=== PATIENT | female | born 1955 | race Caucasian/White ===

== ENCOUNTER 2018-02-24 08:41 | Observation (INO) | payer MEDICAID ==
[~2018-02-24] VITALS: Ht 167.6 cm; Wt 78.2 kg
[2018-02-24 09:06] LABS: BASOPHILS 0.2 % (0-2); EOSINOPHILS 0 % (0-7); HEMATOCRIT 43.6 % (36.0-48.0); HEMOGLOBIN 14.8 g/dL (12-16); IMMATURE GRANULOCYTES 0.2 % (0-5); LYMPHOCYTES 17.6 % (15-50); MCH 32.4 pg (26.0-34.0); MCHC 33.9 g/dL (31.0-37.0); MCV 95.4 fL (80.0-100.0); MEAN PLATELET VOLUME 11.2 fL (7.4-10.4); MONOCYTES 3.2 % (2-11); NEUTROPHILS 78.8 % (40-80); PLATELET COUNT 151 10x3/uL (130-400); RBC 4.57 10x6/uL (4.00-5.40); RDW 14.4 % (11.5-14.5); WBC 9.6 10x3/uL (4.8-10.8)
[2018-02-24 09:22] LABS: APPEARANCE CLEAR (CLEAR); COLOR YELLOW (YELLOW)
[2018-02-24 09:23] LABS: BILIRUBIN NEGATIVE (NEGATIVE); GLUCOSE 250 mg/dL (NEGATIVE); KETONE NEGATIVE (NEGATIVE); NITRITE NEGATIVE (NEGATIVE); PROTEIN NEGATIVE (NEGATIVE); UROBILINOGEN NORMAL (NORMAL)
[2018-02-24 09:29] LABS: ALBUMIN 3.7 g/dL (3.4-5.0); ALKALINE PHOSPHATASE 109 U/L (46-116); ALT (SGPT) 19 U/L (10-68); BILIRUBIN - TOTAL 0.84 mg/dL (0.2-1.3); CALCIUM 9.6 mg/dL (8.5-10.1); CARBON DIOXIDE 23.8 mmol/L (21.0-32.0); CHLORIDE - SERUM 98 mmol/L (98-107); CKMB 0.2 U/L (0.0-3.6); CREATINE KINASE 45 UL (21-215); PROTEIN - SERUM 7.6 g/dL (6.4-8.2); SODIUM 135 mmol/L (136-145); UREA NITROGEN 15 mg/dL (7-18); eGFR NON AFRICAN AMERICAN 59 mL/min (90-120)
[2018-02-24 09:34] LABS: CALC OSMOLALITY 291 mosm/kg (275-300); GLUCOSE 482 mg/dL (74-106); TROPONIN-I < 0.017 ng/mL (0.000-0.060)
[2018-02-24 10:00] LABS: ACETAMINOPHEN 32.4 ug/mL (10.0-30.0)
[2018-02-24 10:05] LABS: UDS - AMPHET NEGATIVE QUAL (NEGATIVE); UDS - BARB NEGATIVE QUAL (NEGATIVE); UDS - BENZO NEGATIVE QUAL (NEGATIVE); UDS - COCAINE NEGATIVE QUAL (NEGATIVE); UDS - OPIATE NEGATIVE QUAL (NEGATIVE); UDS - PCP NEGATIVE QUAL (NEGATIVE); UDS - THC NEGATIVE QUAL (NEGATIVE)
[2018-02-24 15:08] LABS: CKMB 0.5 U/L (0.0-3.6); CREATINE KINASE 47 UL (21-215); TROPONIN-I < 0.017 ng/mL (0.000-0.060)
[2018-02-24 16:43] VITALS: BP 150/59
[2018-02-24 16:51] VITALS: BMI 27.8
[2018-02-24] MEDS ORDERED: TYLENOL PM1 TAB (18:16)
[2018-02-24] MEDS ORDERED: NEURONTIN600 MG PO (18:17)
[2018-02-24] MEDS ORDERED: COREG 3.1253.125 MG PO (18:17)
[2018-02-24] MEDS ORDERED: LIPITOR80 MG PO (18:17)
[2018-02-24] MEDS ORDERED: ZESTORETIC 20/21 TAB PO (18:18)
[2018-02-24] MEDS ORDERED: LYRICA50 MG PO (18:18)
[2018-02-24] MEDS ORDERED: ROBAXIN-750750 MG PO (18:19)
[2018-02-24] MEDS ORDERED: PLAVIX75 MG PO (18:20)
[2018-02-24] MEDS ORDERED: PROTONIX40 MG PO (18:21)
[2018-02-24] MEDS ORDERED: ZOLOFT100 MG PO (18:22)
[2018-02-24] MEDS ORDERED: REGLAN10 MG PO (18:22)
[2018-02-24] MEDS ORDERED: PROVENTIL/2.5 MG/3 M INH (18:23)
[2018-02-24 20:07] LABS: CKMB 0.4 U/L (0.0-3.6); CREATINE KINASE 57 UL (21-215)
[2018-02-24 20:08] LABS: TROPONIN-I < 0.017 ng/mL (0.000-0.060)
[2018-02-24 23:04] VITALS: BP 155/89
[2018-02-25 02:50] LABS: CREATINE KINASE 81 UL (21-215)
[2018-02-25 02:51] LABS: TROPONIN-I < 0.017 ng/mL (0.000-0.060)
[2018-02-25 04:33] VITALS: BP 134/44
[2018-02-25 08:42] VITALS: BP 126/76
[2018-02-25 12:45] VITALS: BP 147/77
[2018-02-25 14:40] VITALS: Ht 167.6 cm; Wt 78.2 kg
[2018-02-25] MEDS ORDERED: CYMBALTA30 MG PO (14:40)
== END 2018-02-25 15:36 | disposition home or self-care (01) ==
LOC: D.ER 08:41 → D.EDHOLD 14:09 → D.MS 14:33 → OBSVTIME 17:00 → D.MS 02-25 15:36
PROVIDERS: Family Medicine
DX: T42.6X1A Poisoning by other antiepileptic and sedative-hypnotic drugs, accidental (unintentional), initial encounter (principal); R41.82 Altered mental status, unspecified; E11.42 Type 2 diabetes mellitus with diabetic polyneuropathy; F17.200 Nicotine dependence, unspecified, uncomplicated; E11.65 Type 2 diabetes mellitus with hyperglycemia

== ENCOUNTER 2018-11-02 15:45 | Inpatient (IN) | payer MEDICARE ==
[~2018-11-02] VITALS: Ht 167.6 cm; Wt 71.1 kg
--- NOTE | ~2018-11-02 | HEMODYNAMI ---
PATIENT:CELI SHIPMAN MEDICAL RECORD: [id number] : 51 LOCATION:D D.2230 ADMISSION DATE: 11/03/18 Generatedon:11/06/201811:55 Patient name: CELI SHIPMAN Patient #: [id number] SSN: D OB: 1955 Date of study: 11/06/2018 Page: Of Hemodynamic Procedure Report Patient Data Patient Demographics Procedure consent was obtained First Name: CELI Gender: Female Last Name: UMBERTO : 1955 Patient #: [id number] Age: 63 year(s) Race: Unknown Additional ID: [id number] Contact details Address: [address] State: [place] City: [place] Zip code: [address] Admission Admission Data Admission Date: 11/03/2018 Admission Time: 13:39 Arrival Date: 11/06/2018 Arrival Time: 13:39 Admit Source: Other Insurance Payor: Medicare Room #: D.2230 Height (in.): 65.75 BSA: 1.86 (m2) Height (cm.): 167 BMI: 27.61 (kg/m2) Weight (lbs.): 169.76 Weight (kg.): 77 Lab Results Lab Result Date: 11/06/2018 Lab Result Time: 0:00 Biochemistry Name Units Result Min Max BUN mg/dl 17 --(---*)-- 7 18 Creatinine mg/dl 0.6 --(*---)-- 0.6 1.3 CBC Name Units Result Min Max Hemoglobin g/dl 13 -*(----)-- 13.5 17.5 Procedure Procedure Types Cath Procedure Diagnostic Procedure LHC LHC w/Coronaries Sedation Charges Moderate Sedation up to 15 minutes PCI Procedure Coronary Stent Coronary Stent Initial x2 Peripheral Cath Diagnostic Procedure Spice Mixer Peripheral Procedures Four Vessel Arteriogram Procedure Description Procedure Date Procedure Date: 11/06/2018 Procedure Start Time: 11:27 Procedure End Time: 11:54 Procedure Staff Name Function Luis A Gray MD Performing Physician Louie Heredia RT Monitor Angle Macrthur RT Monitor Ariella Eaton RT Scrub Kenneth Wasserman RN Nurse Procedure Data Cath Procedure Fluoroscopy Diagnostic fluoroscopy Total fluoroscopy Time: 4.8 time: 4.8 min min Diagnostic fluoroscopy Total fluoroscopy dose: 668 dose: 668 mGy mGy Contrast Material Contrast Material Type Amount (ml) Isovue 300 110 Entry Location Entry Primary Successful Side Size Upsize Upsize Entry Closure Succes sful Closure Location (Fr) 1 (Fr) 2 (Fr) Remarks Device Remarks Femoral Right 5 Fr 6 Fr Exoseal artery Short Estimated blood loss: 5 ml Diagnostic catheters Device Type Used For End Catheter Placement MULTIPACK Pigtail 5 Fr LV Angiography catheter MULTIPACK JL 4.0 5Fr Left Coronary catheter Angiography MULTIPACK 3DRC 5Fr Multi-vessel catheter Angiography Procedure Complications No complications Procedure Medications Medication Administration Route Dosage 0.9% NaCl I.V. 100 ml/hr Oxygen etCO2 Nasal cannula 2 l/min Heparin Flush Bag added to field 2 bags (1000units/500ml NS) Lidocaine 2% added to field 20 Versed I.V. 2 mg Fentanyl I.V. 100 mcg Heparin Bolus I.V. 4000 units Integrilin (Bolus I.V. 6.8 ml 2mg/ml) Integrilin (Bolus I.V. 3.2 ml 2mg/ml) Plavix P.O. 600 mg Hemodynamics Rest BSA: 1.86 (m2) HGB: 13 (g/dl) O2 Consumption: Estimated: 165.2 (ml/min) O2 Consu mption indexed: Estimated:88.82 (ml/min/m) Heart Rate: 58 (bpm) Pressure Samples Time Site Value (mmHg) Purpose Heart Use Rate(bpm) 11:28 LV 142/11,17 Snapshot 62 Snapshots Pre Cath Intra NCS Post Cath Vital Signs Time Heart Resp SPO2 etCO2 NIBP (mmHg) Rhythm Pain Sedation Rate (ipm) (%) (mmHg) Status Level (bpm) 11:13:34 61 16 96 0 164/72(106) NSR 0 (11) 10(A) , No pain 11:18:00 62 12 98 11.9 134/63(107) NSR 0 (11) 10(A) , No pain 11:22:16 61 12 99 43.3 142/62(101) NSR 0 (11) 10(A) , No pain 11:26:37 61 20 97 0 116/59(92) NSR 0 (11) 10(A) , No pain 11:30:46 60 18 98 40.4 134/58(94) NSR 0 (11) 10(A) , No pain 11:35:02 66 15 97 31.4 124/62(83) NSR 0 (11) 9(A) , No pain 11:39:14 62 12 97 25.4 126/65(92) NSR 0 (11) 9(A) , No pain 11:43:30 62 19 97 29.8 117/55(92) NSR 0 (11) 9(A) , No pain 11:47:42 62 14 98 38.9 112/53(83) NSR 0 (11) 9(A) , No pain 11:51:52 68 11 97 44.1 119/55(92) NSR 0 (11) 9(A) , No pain Medications Time Medication Route Dose Verified Delivered Reason Notes Effectiveness by by 11:17:19 0.9% NaCl I.V. 100 Kenneth Kenneth Per physician ml/hr Lisy Wasserman RN RN 11:17:29 Oxygen etCO2 2 Kenneth Kenneth Per physician Nasal l/min Liys Wasserman cannula RN RN 11:17:44 Heparin Flush added 2 Kenneth Kenneth used for Bag to bags Lisy Wasserman procedure (1000units/500ml field CAMPA RN NS) 11:17:55 Lidocaine 2% added 20ml Kenneth Kenneth for local to vial Lisy Wassemran anesthetic field CAMPA RN 11:23:38 Versed I.V. 2 mg Kenneth Kenneth for sedation Lisy Wasserman RN RN 11:23:47 Fentanyl I.V. 100 Kenneth Kenneth for sedation mcg Lisy Wasseramn RN RN 11:42:37 Heparin Bolus I.V. 4000 Kenneth Kenneth for units Lisy Wasserman anticoagulation RN RN 11:42:55 Integrilin I.V. 6.8 Kenneth Kenneth for (Bolus 2mg/ml) ml Lisy Wasserman antiplatelet RN RN therapy 11:43:08 Integrilin I.V. 3.2 Kenneth Kenneth to sharp's (Bolus 2mg/ml) ml Lisy Wasserman RN RN 11:50:20 Plavix P.O. 600 Kenneth Kenneth for mg Lisy Wasserman antiplatelet RN RN therapy Procedure Log Time Note 10:43:02 Signed procedure consent form obtained from patient. 10:43:03 Diagnostic Cath status Elective 10:43:14 H&P Date Dictated: 11/02/2018 Within 30 days and on chart.. 10:43:18 Time tracking: Regular hours (M-F 7:00 - 5:00) 10:43:24 Plan of Care:Hemodynamics will remain stable., Cardiac rhythm will remain stable., Comfort level will be maintained., Respiratory function will remain adequate., Patient/ family verbilizes understanding of procedure., Procedure tolerated without complication., Recovers from procedure without complications.. 10:54:41 Ariella Eaton RT(R) sent for patient. Start room use. 11:05:23 Patient received from Med/Surg to CCL 1 Alert and oriented. Tansferred to table in Supine position. 11:05:24 Warm blankets applied, and kate hugger turned on for patient comfort. 11:05:25 Correct patient and procedure confirmed by team. 11:05:25 ECG and BP/O2 sat monitors applied to patient. 11:12:17 Vital chart was started 11:12:19 Baseline sample Acquired. 11:12:22 Rhythm: sinus rhythm 11:12:24 Full Disclosure recording started 11:12:25 Pre-procedure instructions explained to patient. 11:12:26 Pre-op teaching completed and patient verbalized understanding. 11:12:28 Family unavailable. 11:12:30 Patient NPO since Midnight. 11:12:37 Is the patient allergic to Iodine/contrast media? No. 11:12:38 Was the patient premedicated? No 11:12:41 Is patient on blood thinner?Yes 11:12:47 ACC The patient was administered the following blood thiners within the last 24 hours: ACCHeparin 11:13:44 Patient diabetic? Yes. 11:13:56 If diabetic: On Metformin? No 11:13:59 Previous problem with sedation/anesthesia? No ? 11:14:01 Snore? Yes 11:14:03 Sleep apnea? No 11:14:05 Deviated septum? No 11:14:05 Opens mouth fully? Yes 11:14:06 Sticks out tongue? Yes 11:14:09 Airway obstruction? No ? 11:14:13 Dentures? Yes out 11:14:17 Pre procedure: right dorsailis pedis pulse 2+ Normal; easily identifiable; not easily obliterated 11:14:19 Pre procedure: left dorsailis pedis pulse 2+ Normal; easily identifiable; not easily obliterated 11:14:21 Patient pain scale 0/10 ?. 11:14:27 IV patent on arrival in left forearm with 0.9% NaCl at [facility]. 11:14:29 Lab results completed and on chart. 11:14:36 Right groin area was prepped with chlora-prep and draped in sterile fashion 11:14:37 Alarms reviewed by R. N. 11:14:37 Sharps counted by scrub and verified by R.N. 11:17:19 0.9% NaCl 100 ml/hr I.V. was administered by Kenneth Wasserman RN; Per physician; 11:17:29 Oxygen 2 l/min etCO2 Nasal cannula was administered by Kenneth Wasserman RN; Per physician; 11:17:44 Heparin Flush Bag (1000units/500ml NS) 2 bags added to field was administered by Kenneth Wasserman RN; used for procedure; 11:17:55 Lidocaine 2% 20ml vial added to field was administered by Kenneth Wasserman RN; for local anesthetic; 11:19:56 Lab Result : Hemoglobin 13 g/dl 11:19:56 Lab Result : Creatinine 0.6 mg/dl 11:19:56 Lab Result : BUN 17 mg/dl 11:20:07 Physician arrived 11:20:08 --------ALL STOP TIME OUT------ 11:20:08 Final Timeout: patient, procedure, and site verified with staff and physician. All members of the team are in agreement. 11:20:11 Right groin site verified by team. 11:20:17 Fire Safety Assessment: A--An alcohol-based skin anteseptic being used preoperatively., C--Open oxygen or nitrous oxide is being used., D--An ESU, laser, or fiber-optic light is being used. 11:20:23 Physical assessment completed. ASA score P 2 - A patient with mild systemic disease as per Luis A Gray MD. 11:20:27 Sedation plan: IV Moderate Sedation Medication:Versed, Fentanyl 11:20:34 Use device set Femoral Dx 11:20:35 ACIST Syringe (93499) opened to sterile field. 11:20:36 Bag Decanter (2002S) opened to sterile field. 11:20:36 Medline Cath Pack ([id number]) opened to sterile field. 11:20:37 DIAGNOSTIC WIRE .035 260cm J wire (301538) opened to sterile field. 11:20:40 ACIST Hand Control (86232) opened to sterile field. 11:20:40 ACIST Manifold (26069) opened to sterile field. 11:20:41 DIAGNOSTIC Multipack 5Fr catheter set (ZA5291) opened to sterile field. 11:20:42 Tegaderm 4 x 4 (1626W) opened to sterile field. 11:20:43 SHEATH 5FR [place] (LVE137) opened to sterile field. 11:21:02 Admit Source: Other 11:21:28 Patient Height : 65.75 inches 11:21:39 Patient Weight : 169.76 lbs 11::47 Insurance Payor : Medicare 11:21:48 Arrival Date: 11/06/2018 1:39:00 PM 11:23:38 Versed 2 mg I.V. was administered by Kenneth Wasserman RN; for sedation; 11::47 Fentanyl 100 mcg I.V. was administered by Kenneth Wasserman RN; for sedation; 11:24:35 Zero performed for pressure channel P1 11:27:25 Procedure started. 11:27:44 Local anesthetic to right femoral artery with Lidocaine 2% by Luis A Gray MD.INITIAL ACCESS ONLY 11::57 A 5 Fr sheath was inserted into the Right Femoral artery 11:29:07 A MULTIPACK Pigtail 5 Fr catheter was advanced over the wire and used for LV Angiography. 11:29:11 LV hemodynamics recorded. 11:29:13 LV gram done using SALINAS 11::15 Injector settings: Ml/sec: 5, Volume: 15, 11:29:47 EF : 60 % 11:29:57 Catheter removed. 11:30:02 A MULTIPACK JL 4.0 5Fr catheter was advanced over the wire and used for Left Coronary Angiography. 11:30:22 LCA angiography performed. 11:30:25 Injector settings: Ml/sec: 3, Volume: 6, 11:31:56 Catheter removed. 11:32:07 A MULTIPACK 3DRC 5Fr catheter was advanced over the wire and used for Multi-vessel Angiography. 11:32:32 RCA angiography performed. 11:32:35 Injector settings: Ml/sec: 3, Volume: 6, 11:32:59 Bilateral carotid angiography performed. 11:33:01 Bilateral subclavian angiography performed 11:34:30 Catheter removed. 11:34:47 SHEATH 6FR [place] (ZYB858) opened to sterile field. 11:34:48 INFLATOR Merit BasixCompak (TO3566) opened to sterile field. 11:34:49 CHOICE PT Extra Support 182cm wire ([id number]) opened to sterile field. 11:35:29 GUIDE 6FR XB 3.5 SH catheter ([id number]) opened to sterile field. 11:35:30 GUIDE 6FR 3DRC SH catheter ([id number]) opened to sterile field. 11:39:05 Proceeding to intervention. 11:39:13 Sheath upsized to a 6 Fr Short. 11:39:23 6 Fr 3drc sh guide catheter was inserted over the wire 11:39:29 choice pt wire advanced. 11:40:49 Wire advanced across lesion. 11:42:37 Heparin Bolus 4000 units I.V. was administered by Kenneth Wasserman RN; for anticoagulation; 11:42:39 Place stent Inflation Number: 1 A LIZETH RX 2.75 x 18 stent ([id number]) was prepped and advanced across the Prox RCA. The stent was deployed at 13 KATELYN for 0:10 (min:sec). 11:42:55 Integrilin (Bolus 2mg/ml) 6.8 ml I.V. was administered by Kenneth Wasserman RN; for antiplatelet therapy; 11:43:08 Integrilin (Bolus 2mg/ml) 3.2 ml I.V. was administered by Kenneth Wasserman RN; to sharp's; 11:43:48 Stent catheter was removed intact over wire. 11:43:49 Wire removed. 11:43:50 Guide catheter removed. 11:44:01 6 Fr xb 3.5 sh guide catheter was inserted over the wire 11:44:07 choice pt wire advanced. 11:44:27 Wire advanced across lesion. 11:46:45 Place stent Inflation Number: 1 A LIZETH RX 2.25 x 38 stent ([id number]) was prepped and advanced across the Mid CX. The stent was deployed at 17 KATELYN for 0:10 (min:sec). 11:46:46 Stent catheter was removed intact over wire. 11:47:37 Place stent Inflation Number: 2 A LIZETH RX 2.25 x 15 stent ([id number]) was prepped and advanced across the Mid CX. The stent was deployed at 11 KATELYN for 0:10 (min:sec). 11:48:03 Stent catheter was removed intact over wire. 11:48:05 Wire removed. 11:48:07 Guide catheter removed. 11:50:05 EXOSEAL 6Fr (EX600) opened to sterile field. 11:50:20 Plavix 600 mg P.O. was administered by Kenneth Wasserman RN; for antiplatelet therapy; 11:50:22 Sheath removed intact; hemostasis achieved with Exoseal to the Right Femoral artery. 11:50:25 Procedure ended.(Physican Out) 11:51:50 Fluoroscopy time 04.80 minutes. 11:51:54 Fluoroscopy dose: 668 mGy 11:51:54 Flurop Dose total: 668 11:51:59 Contrast amount:Isovue 300 110ml. 11:52:01 Sharps counted by scrub and verified by R.N. 11:52:03 Insertion/operative site no bleeding no hematoma. 11:52:08 Post-op/insertion site Right Femoral artery dressed using a 4 x 4 and Tegaderm. 11:52:11 Post right femoral artery:stable 11:52:13 Post Procedure Pulses reassessed and unchanged 11:52:16 Post procedure rhythm: unchanged. 11:52:19 Estimated blood loss: 5 ml 11:52:21 Post procedure instruction explained to patient.Patient verbalizes understanding. 11:52:22 Patient needs reinforcement of post procedure teaching. 11:53:05 Procedure type changed to Cath procedure, Diagnostic procedure, LHC, LHC w/Coronaries, Sedation Charges, Moderate Sedation up to 15 minutes, PCI procedure, Coronary Stent, Coronary Stent Initial x2, Peripheral Cath Diagnostic Procedure, Spice Mixer Peripheral Procedures, Four Vessel Arteriogram 11:53:06 Procedure and supply charges have been captured, reviewed, submitted and are correct. 11:53:12 Procedure Complication : No complications 11:53:15 Vital chart was stopped 11:53:15 See physician's report for complete and final results. 11:53:57 Report given to Pre/Post Procedure Room. 11:54:00 Patient transfered to Pre/Post Procedure Room with Stretcher. 11:54:03 Procedure ended. 11:54:03 Full Disclosure recording stopped 11:54:14 ACC-PCI Only Patient was given prescriptions, or instructed by Luis A Gray MD to start/continue the following medications upon discharge: Plavix 11:54:16 End room use (Document Last) Intervention Summary Intervention Notes Time ActionType Lesion and Equipment Used Action# Pressure Duration Attributes 11:42:39 Place stent Prox RCA LIZETH RX 2.75 x 1 13 00:10 18 stent ([id number]) 11:46:45 Place stent Mid CX LIZETH RX 2.25 x 1 17 00:10 38 stent ([id number]) 11:47:37 Place stent Mid CX LIZETH RX 2.25 x 2 11 00:10 15 stent ([id number]) Device Usage Item Name Manufacture Quantity Catalog Number Hospital Part Current M inimal Lot# / Charge Number Stock Stock Serial# Code ACIST Syringe Acist 1 88067 724637 948335 250839 2 0 (57100) Medical Systems Inc Bag Decanter Microtek 1 971380 20282 458013 5 () Medical Inc. Medline Cath Medline 1 [id number] 158536 25651 575313 5 Pack ([id number]) DIAGNOSTIC [place] 1 661854 296854 615769 479560 3 0 WIRE .035 260cm J wire (411058) ACIST Hand Acist 1 32697 238064 735487 076994 5 Control Medical (07670) Systems Inc ACIST Manifold Acist 1 92052 197441 992648 252603 5 (69137) Medical Systems Inc DIAGNOSTIC Cardinal 1 FM6425 284934 81873 881838 3 0 Multipack 5Fr Health catheter set (GU5372) Tegaderm 4 x 4 3M 1 1626W 033901 601588 231009 5 (1626W) SHEATH 5FR Terumo 1 DNI560 369771 865658 753424 5 [place] (GVQ170) MULTIPACK Cardinal 1 581916 5 Pigtail 5 Fr Health catheter MULTIPACK JL Cardinal 1 239723 5 4.0 5Fr Health catheter MULTIPACK 3DRC Cardinal 1 629880 5 5Fr catheter Health SHEATH 6FR Terumo 1 XNX109 000876 898409 417993 4 0 [place] (ZFD653) INFLATOR Merit Merit 1 AN4346 249738 827501 391143 1 5 BasixComfort [facility] Medical (FC0132) CHOICE PT [place] 1 [id number] 604708 168114 203021 5 Extra Support Scientific 182cm wire ([id number]) GUIDE 6FR XB Cardinal 1 16710270 902312 893130 017349 2 3.5 SH Health catheter (12532777) GUIDE 6FR 3DRC Medtronic 1 [id number] 136109 260310 357045 1 SH catheter ([id number]) LIZETH RX 2.75 x Medtronic 1 [id number] 570170 6467994 582792 5 [id number] 18 stent ([id number]) LIZETH RX 2.25 x Medtronic 1 [id number] 005244 4084393 816865 5 [id number] 38 stent ([id number]) LIZETH RX 2.25 x Medtronic 1 [id number] 103255 8424998 505704 5 [id number] 15 stent ([id number]) EXOSEAL 6Fr Cardinal 1 EX600 071017 803262 607711 1 0 (EX600) Health Signature Audit [place] Stage Time Signature Unsigned Intra-Procedure 11/06/2018 Angle Mcarthur 11:55:38 AM RT(R) Signatures Monitor : Louie Heredia Signature : RT Date : Time : Monitor : Angle Mcarthur RT Signature : Date : Time : [address] [place] [address]
[~2018-11-02 15:45] MED LIST: COREG 3.1253.125 MG PO; CYMBALTA30 MG PO; LIPITOR80 MG PO; LYRICA50 MG PO; NEURONTIN600 MG PO; PLAVIX75 MG PO; PROTONIX40 MG PO; PROVENTIL/2.5 MG/3 M INH; REGLAN10 MG PO; ROBAXIN-750750 MG PO; TYLENOL PM1 TAB; ZESTORETIC 20/21 TAB PO; ZOLOFT100 MG PO
[2018-11-02 16:23] LABS: BASOPHILS 0.3 % (0-2); EOSINOPHILS 0.2 % (0-7); HEMATOCRIT 45.8 % (36.0-48.0); HEMOGLOBIN 15.8 g/dL (12-16); IMMATURE GRANULOCYTES 0.4 % (0-5); LYMPHOCYTES 35.3 % (15-50); MCH 33.9 pg (26.0-34.0); MCHC 34.5 g/dL (31.0-37.0); MCV 98.3 fL (80.0-100.0); MEAN PLATELET VOLUME 10.7 fL (7.4-10.4); MONOCYTES 4.9 % (2-11); NEUTROPHILS 58.9 % (40-80); RBC 4.66 10x6/uL (4.00-5.40); RDW 15.8 % (11.5-14.5); WBC 9.7 10x3/uL (4.8-10.8)
--- NOTE | 2018-11-02 16:35 | NUR ---
PT OUT OF DEPARTMENT AT THIS TIME FOR ORDERED CT.
[2018-11-02 16:46] LABS: ALBUMIN 4.3 g/dL (3.4-5.0); ALKALINE PHOSPHATASE 93 U/L (46-116); ALT (SGPT) 18 U/L (10-68); BILIRUBIN - TOTAL 0.58 mg/dL (0.2-1.3); CALC OSMOLALITY 279 mosm/kg (275-300); CALCIUM 10.1 mg/dL (8.5-10.1); CARBON DIOXIDE 22.5 mmol/L (21.0-32.0); CHLORIDE - SERUM 96 mmol/L (98-107); CREATININE - SERUM 0.9 mg/dL (0.6-1.3); POTASSIUM - SERUM 3.8 mmol/L (3.5-5.1); PROTEIN - SERUM 8.6 g/dL (6.4-8.2); SODIUM 135 mmol/L (136-145); UREA NITROGEN 21 mg/dL (7-18); eGFR NON AFRICAN AMERICAN 67 mL/min (90-120)
[2018-11-02 16:52] LABS: PLATELET COUNT 198 10x3/uL (130-400)
[2018-11-02 16:54] LABS: GLUCOSE 220 mg/dL (74-106)
[2018-11-02 16:58] LABS: CKMB 0.4 U/L (0.0-3.6); CREATINE KINASE 77 UL (21-215)
[2018-11-02 17:02] LABS: TROPONIN-I < 0.017 ng/mL (0.000-0.060)
[2018-11-02 17:16] LABS: APPEARANCE CLEAR (CLEAR); BILIRUBIN NEGATIVE (NEGATIVE); COLOR YELLOW (YELLOW); GLUCOSE 50 mg/dL (NEGATIVE); KETONE NEGATIVE (NEGATIVE); NITRITE NEGATIVE (NEGATIVE); PROTEIN TRACE mg/dL (NEGATIVE); SPECIFIC GRAVITY 1.025 (1.005-1.020); UROBILINOGEN NORMAL (NORMAL)
[2018-11-02 17:23] LABS: UDS - AMPHET NEGATIVE QUAL (NEGATIVE); UDS - BARB NEGATIVE QUAL (NEGATIVE); UDS - BENZO NEGATIVE QUAL (NEGATIVE); UDS - COCAINE NEGATIVE QUAL (NEGATIVE); UDS - OPIATE NEGATIVE QUAL (NEGATIVE); UDS - PCP NEGATIVE QUAL (NEGATIVE); UDS - THC NEGATIVE QUAL (NEGATIVE)
--- NOTE | 2018-11-02 17:25 | NUR ---
PT MOVED TO HALLWAY IN ORDER FOR PATIENT SAFETY DUE TO CONFUSION AND AGITATION. PT CURRENLTY LYING IN BED. PT RESTING WITH EYES CLOSED. RESP EVEN AND UNLABORED NO SIGNS OF DISTRESS WILL CONTINUE TO MONITOR.
--- NOTE | 2018-11-02 18:25 | NUR ---
PT FELL OUT OF BED AT 1825 DESPITE ALL IMPLEMENTED FALL RISK INTERVENTIONS. PT WAS IN THE [place] WAY, SIDE RAILS RAISED X2, NO-SKID SOCKS IN PLACE, BOX ALARM IN PLACE, FALL RISK BAND IN PLACE AND IN SIGHT OF NURSES STATION. FALL WAS WITNESSED BY APPLICATIONS PROGRAMMER ANALYSTITA PAULSON WHO STATES THAT PT DID NOT HIT HER HEAD DURING FALL. NO OBVIOUS INJURIES NOTED. PT DENIES ANY PAIN. BARREL LINER NOTIFIED. EDP DR. LLANOS AND TREATING PROVIDER AWARE OF INCIDENT. PT REMAINS ALERT AND ORIENTED TO PERSON ONLY. PT CONTINUES TO ATTEMPT TO CLIMB OUT OF BED. POST FALL, SECURITY STAFF ASKED TO COME AND SIT BEDSIDE FOR PT SAFETY. NURSE ATTEMPTED TO NOTIFY FAMILY MEMBER LISTED ON FACESHEET, NO ANSWER.
--- NOTE | 2018-11-02 19:11 | NUR ---
HAND-OFF REPORT GIVEN TO RECEIVING NURSE KATHERYN SORENSON.
[2018-11-02 20:00] VITALS: BP 203/83
--- NOTE | 2018-11-02 20:20 | NUR ---
RECEIVED PT TO FLOOR FROM ER VIA STRETCHER. PT MOVED OVER TO BED HERSELF. PT ORIENTED TO SELF ONLY. SHE SAYS SHE CANNOT REMEMBER ANYTHING ABOUT HER LIFE. ASKED HER WHO SHE LIVES WITH AND SHE ANSWERED, "I DON'T KNOW." PT UNABLE TO GIVE HISTORY. STATES SHE CANNOT REMEMBER IF SHE TAKES ANY HOME MEDS, BUT SAYS SHE DOEN'T THINK SHE DOES. STATES SHE DOES NOT KNOW WHAT PHARMACY SHE USES. PT ON ROOM AIR. TRIED TO CLIMB OUT OF BED. INCONTINENT OF STOOL SOON AFTER ARRIVAL TO FLOOR. KETTY ALARM ON AND WORKING. INSTRUCTED ON USE OF CALL LIGHT. WILL CONTINUE TO MONITOR.
[2018-11-03] VITALS (12 sets, daily range): BP systolic 101–203; BP diastolic 59–99; BMI 27.5; BMI 27.4
[2018-11-03 06:05] LABS: BASOPHILS 0.3 % (0-2); EOSINOPHILS 0.5 % (0-7); HEMATOCRIT 46.9 % (36.0-48.0); IMMATURE GRANULOCYTES 0.2 % (0-5); MCH 33.5 pg (26.0-34.0); MCHC 34.1 g/dL (31.0-37.0); MCV 98.3 fL (80.0-100.0); MEAN PLATELET VOLUME 10.8 fL (7.4-10.4); MONOCYTES 7.1 % (2-11); NEUTROPHILS 53.9 % (40-80); PLATELET COUNT 175 10x3/uL (130-400); RBC 4.77 10x6/uL (4.00-5.40); WBC 9.2 10x3/uL (4.8-10.8)
[2018-11-03 06:21] LABS: ALBUMIN 3.9 g/dL (3.4-5.0); ALKALINE PHOSPHATASE 85 U/L (46-116); ALT (SGPT) 16 U/L (10-68); BILIRUBIN - TOTAL 0.59 mg/dL (0.2-1.3); CALC OSMOLALITY 279 mosm/kg (275-300); CALCIUM 9.4 mg/dL (8.5-10.1); CARBON DIOXIDE 23.4 mmol/L (21.0-32.0); CHLORIDE - SERUM 98 mmol/L (98-107); CREATINE KINASE 179 UL (21-215); CREATININE - SERUM 0.7 mg/dL (0.6-1.3); GLUCOSE 231 mg/dL (74-106); POTASSIUM - SERUM 3.7 mmol/L (3.5-5.1); SODIUM 135 mmol/L (136-145); TROPONIN-I < 0.017 ng/mL (0.000-0.060); UREA NITROGEN 21 mg/dL (7-18); eGFR NON AFRICAN AMERICAN 89 mL/min (90-120)
--- NOTE | 2018-11-03 10:38 | NUR ---
SPOKE WITH PT SON ABENA. SON STATES PT HAS HAD THESE SAME SYMPTOMS AND PROBLEMS BEFORE DUE TO MISUSE OF TYLENOL PM, AND TRAMADOL. REPORTED THIS IMFORMATION TO ALEXA BOOKER. ALSO VARIED PT HAS NO PACEMAKER OR IMPLANTED METAL AND CLEARS THE MRI SCREENING. WILL LET MRI KNOW
[2018-11-03 11:03] LABS: APPEARANCE CLOUDY (CLEAR); BILIRUBIN 2+ (NEGATIVE); COLOR YELLOW (YELLOW); GLUCOSE 100 mg/dL (NEGATIVE); KETONE SMALL mg/dL (NEGATIVE); NITRITE NEGATIVE (NEGATIVE); PROTEIN 2+ mg/dL (NEGATIVE); UROBILINOGEN NORMAL (NORMAL)
[2018-11-03 11:04] LABS: AMORPHOUS SEDIMENT >1+ /lpf (NONE SEEN); EPITHELIAL CELLS 0-5 /hpf (0-5); RED CELLS - URINE >50 /hpf (0-5); WHITE CELLS - URINE 0-5 /hpf (0-5)
--- NOTE | 2018-11-03 14:47 | NUR ---
PT ARRIVED ON UNIT VIA WHEELCHAIR, HOOKED TO MONITORS, BED ALARM ON, VSS, CALL LIGHTIN REACH
[2018-11-03 16:27] LABS: APPEARANCE CLEAR (CLEAR); COLOR YELLOW (YELLOW); GLUCOSE 100 mg/dL (NEGATIVE); NITRITE NEGATIVE (NEGATIVE); PROTEIN 1+ mg/dL (NEGATIVE); SPECIFIC GRAVITY 1.015 (1.005-1.020)
[2018-11-03 16:28] LABS: BILIRUBIN NEGATIVE (NEGATIVE); KETONE NEGATIVE (NEGATIVE); UROBILINOGEN NORMAL (NORMAL)
[2018-11-03 16:29] LABS: BACTERIA FEW /hpf (NONE SEEN); CALCIUM OXALATE CRYSTALS 0-5 /hpf (NONE SEEN); EPITHELIAL CELLS OCC /hpf (0-5); WHITE CELLS - URINE 0-5 /hpf (0-5)
[2018-11-03 16:30] LABS: URIC ACID CRYSTALS 0-5 /hpf (NONE SEEN)
--- NOTE | 2018-11-03 16:45 | NUR ---
PT BARNES DC'D AT THIS TIME, PT TOLERATED WELL
--- NOTE | 2018-11-03 17:00 | NUR ---
DINNER TRAY AT BEDSIDE, VSS, CALL LIGHT IN REACH
--- NOTE | 2018-11-03 19:45 | NUR ---
ASSESSMENT PER FLOWSHEET, SEE FOR DETAILS. DR FRIEND ON UNIT, ORDERS RECEIEVED.
--- NOTE | 2018-11-03 21:50 | NUR ---
NO VISITORS PRESENT AT THIS TIME, WILL CONT TO MONITOR.
--- NOTE | 2018-11-04 01:50 | NUR ---
PT RESTING IN BED WITH EYES CLOSED, VSS, CONT POC.
[2018-11-04 03:00] VITALS: BP 98/42
--- NOTE | 2018-11-04 05:30 | NUR ---
NO VISITORS PRESENT AT THIS TIME, PT RESTING IN BED WITH EYES CLOSED, VSS.
[2018-11-04 05:35] LABS: BASOPHILS 0.3 % (0-2); EOSINOPHILS 1.4 % (0-7); HEMATOCRIT 45.4 % (36.0-48.0); HEMOGLOBIN 15.1 g/dL (12-16); IMMATURE GRANULOCYTES 0.2 % (0-5); LYMPHOCYTES 36.9 % (15-50); MCHC 33.3 g/dL (31.0-37.0); MCV 99.1 fL (80.0-100.0); MONOCYTES 8.5 % (2-11); NEUTROPHILS 52.7 % (40-80); PLATELET COUNT 191 10x3/uL (130-400); RBC 4.58 10x6/uL (4.00-5.40); RDW 16.1 % (11.5-14.5); WBC 10.7 10x3/uL (4.8-10.8)
[2018-11-04 06:06] LABS: CALC OSMOLALITY 276 mosm/kg (275-300); CALCIUM 9.5 mg/dL (8.5-10.1); CARBON DIOXIDE 25.1 mmol/L (21.0-32.0); CHLORIDE - SERUM 98 mmol/L (98-107); CHOL - HDL RATIO 6.9 ratio (2.3-4.1); CHOLESTEROL, TOTAL 213 mg/dL (0-200); CREATININE - SERUM 0.8 mg/dL (0.6-1.3); GLUCOSE 188 mg/dL (74-106); HDL CHOLESTEROL 31 mg/dL (32-96); LDL CHOLESTEROL 115 mg/dL (0-100); LDL-HDL RATIO 3.7 ratio (1.5-3.5); SODIUM 135 mmol/L (136-145); TRIGLYCERIDE 337 mg/dL (30-200); UREA NITROGEN 19 mg/dL (7-18); eGFR NON AFRICAN AMERICAN 76 mL/min (90-120)
[2018-11-04 06:08] LABS: POTASSIUM - SERUM 3.1 mmol/L (3.5-5.1)
[2018-11-04 08:00] VITALS: BP 100/43
--- NOTE | 2018-11-04 09:00 | NUR ---
NO COMPLAINTS VERBAL AT THIS TIME
--- NOTE | 2018-11-04 09:59 | NUR ---
PT TO CT AT THIS TIME, VIA WHEELCHAIR
--- NOTE | 2018-11-04 10:25 | NUR ---
RETURNED FROM CT, NOTED RIGHT FA IV INFILTRATED, REMOVED IV AND NOTIFIED PRIMARY NURSE, PATIENT TAKING PO H2O AND SWALLOWS WELL.
[2018-11-04 10:40] VITALS: BP 97/47
--- NOTE | 2018-11-04 11:50 | NUR ---
C/O GENERALIZED DISCOMFORT TYLENOL 650 MG PO GIVEN
--- NOTE | 2018-11-04 12:34 | NUR ---
REPORT CALLED TO NURSE MAYERS.
--- NOTE | 2018-11-04 15:09 | NUR ---
PATIENT TRANSFERRED FROM ICU TO MED SURG AT 1300, SKIN W/D TO TOUCH, COLOR PINK, RESP. REGULAR AND EVEN AT 18. ABDOMEN SOFT WITH BS + IN ALL 4 QUADS. NO EDEMA NOTED TO EXTREMITIES PEDAL PULSES GOOD BILATERALLY. LUNGS CLEAR, C/L WITHIN REACH AND SR'S UP X'S 2.
--- NOTE | 2018-11-04 19:15 | NUR ---
RECEIVED CARE FROM DAY NURSE. UP IN ROOM AMBULATING. REQUEST HER NIGHT TIME MEDICATIONS TO GO TO SLEEP. PT REPORTS HER PERCOCETS ARE WHAT SHE TAKES AT HOME TO SLEEP. NO OTHER NEEDS VOICED. IV INFUSING TO PATENT LEFT FA PER ORDER. CALL LIGHT LYING ON BED.
[2018-11-04 20:00] VITALS: BP 115/45
--- NOTE | 2018-11-05 03:29 | NUR ---
RESTING QUITELY IN BED RESP UNLABORED NO APPARENT DISTRESS CALL LIGHT IN REACH
[2018-11-05 04:00] VITALS: BP 125/63
[2018-11-05 06:29] LABS: HEMATOCRIT 39.1 % (36.0-48.0); HEMOGLOBIN 12.7 g/dL (12-16); MCH 32.5 pg (26.0-34.0); MCHC 32.5 g/dL (31.0-37.0); MEAN PLATELET VOLUME 11.3 fL (7.4-10.4); PLATELET COUNT 156 10x3/uL (130-400); RBC 3.91 10x6/uL (4.00-5.40); RDW 15.9 % (11.5-14.5)
[2018-11-05 06:31] LABS: WBC 6.9 10x3/uL (4.8-10.8)
[2018-11-05 06:49] LABS: CALC OSMOLALITY 283 mosm/kg (275-300); CALCIUM 8.7 mg/dL (8.5-10.1); CARBON DIOXIDE 23.2 mmol/L (21.0-32.0); CHLORIDE - SERUM 105 mmol/L (98-107); CREATININE - SERUM 0.6 mg/dL (0.6-1.3); GLUCOSE 155 mg/dL (74-106); POTASSIUM - SERUM 3.5 mmol/L (3.5-5.1); SODIUM 140 mmol/L (136-145); UREA NITROGEN 17 mg/dL (7-18); eGFR NON AFRICAN AMERICAN > 90 mL/min (90-120)
[2018-11-05 08:23] LABS: BASOPHILS 1 % (0-2); EOSINOPHILS 1 % (0-7); HYPOCHROMASIA OCC; LYMPHOCYTES 50 % (15-50); MONOCYTES 7 % (2-11); NEUTROPHILS 41 % (40-80); PLATELET ESTIMATE NORMAL
[2018-11-05 08:25] VITALS: BP 115/59
--- NOTE | 2018-11-05 10:17 | NUR ---
ALERT AND ORIENTED AND UP AD KENROY. TELEMETRY INTACT. S/L INTACT TO LT. FOREARM. DENIES ANY PAIN OR DISCOMFORT AT THIS TIME. ENCOURAGED TO USE CALL LIGHT FOR ASSIST.
--- NOTE | 2018-11-05 12:08 | MORECARE ---
CASE MANAGEMENT DISCHARGE SUMMARY PATIENT: CELI SHIPMAN UNIT: [id number] ADM DATE: 11/03/18 AGE: 63 : 51 SEX: F ROOM/BED: D.2230 AUTHOR: CYNDIE OMALLEY PHYSICIAN: REFERRING PHYSICIAN: JENNIFER FRIEND MD DATE OF SERVICE: 11/05/18 Discharge Plan Patient Name: CELI SHIPMAN Facility: [facility]:[place] : 1955 Planned Disposition: Home Anticipated Discharge Date: Discharge Date: Expected LOS: Initial Reviewer: [email or web address] Initial Review Date: 11/02/2018 Generated: 11/05/18 1:08 pm Patient Name: CELI SHIPMAN Page [id number] at 1208 All edits/amendments must be made on the electronic document DICTATION DATE: 11/05/181206 VOLCANOLOGIST: JOJO 11/05/18 1207 RPT#: [id number] DC DATE: STATUS: ADM IN [facility] [address] [place] [address] END OF REPORT
--- NOTE | 2018-11-05 12:16 | MORECARE ---
CASE MANAGEMENT DISCHARGE SUMMARY PATIENT: CELI SHIPMAN UNIT: [id number] ADM DATE: 11/03/18 AGE: 63 : [birth year] SEX: F ROOM/BED: D.2230 AUTHOR: LYSSA,DOC PHYSICIAN: REFERRING PHYSICIAN: JENNIFER FRIEND MD DATE OF SERVICE: 11/05/18 Discharge Plan Patient Name: CELI SHIPMAN Facility: [facility]:[place] : 1955 Planned Disposition: Home Anticipated Discharge Date: Discharge Date: Expected LOS: Initial Reviewer: [email or web address] Initial Review Date: 11/02/2018 Generated: 11/05/18 1:16 pm Comments DCP- Discharge Planning Updated by [email or web address]: Albina Mckeon on 11/05/18 11:[address] CM spoke with pt. She lives home with her 85 year old mother, Shavonne eCe, who will pick her up at discharge. Her phone # is [phone]. Pt's sister, who is confined to due to stroke, also lives in the home. Pt and mother provide her care. Patient states she drives herself and is independent. She is diabetic and uses a glucometer, but denies any other devices. She declines any needs for home health or other services at this time. CM will continue to follow and assist as needed. DCPIA - Discharge Planning Initial Assessment Updated by [email or web address]: Albina Linda on 11/05/18 12:10 pm * Is the patient Alert and Oriented? Yes * How many steps to enter\exit or inside your home? RAMP/0 * PCP Dr. Frederick * [facility]acy [facility] [place] [address] * Preadmission Environment Home with Family * ADLs Independent * Equipment Glucometer * Other Equipment none * List name and contact numbers for known caregivers / representatives who currently or will assist patient after discharge: Mother, Shavonne Cee [phone] * Verbal permission to speak to the caregivers and representatives has been obtained from the patient. Yes * Additional services required to return to the preadmission environment? No * Can the patient safely return to the preadmission environment? Yes * Has this patient been hospitalized within the prior 30 days at any hospital? No Last DP export: 11/05/18 11:08 am Patient Name: CELI SHIPMAN Page [id number] at 1216 All edits/amendments must be made on the electronic document DICTATION DATE: 11/05/181214 PHYSICAL EDUCATION INSTRUCTOR: JOJO 11/05/181214 RPT#: [id number] DC DATE: STATUS: ADM IN [facility] [address] [place] [address] END OF REPORT
[2018-11-05 12:18] VITALS: BP 130/88
[2018-11-05 12:30] VITALS: Ht 167.6 cm; Wt 71.1 kg
[2018-11-05 12:35] LABS: HEMATOCRIT 39.5 % (36.0-48.0); MCH 32.8 pg (26.0-34.0); MCHC 32.9 g/dL (31.0-37.0); MCV 99.7 fL (80.0-100.0); MEAN PLATELET VOLUME 10.5 fL (7.4-10.4); RBC 3.96 10x6/uL (4.00-5.40); RDW 15.6 % (11.5-14.5); WBC 7.4 10x3/uL (4.8-10.8)
[2018-11-05 12:50] LABS: APTT 29.4 SECONDS (22.8-39.4); INR 1.08 (0.85-1.17); PROTIME 13.5 SECONDS (11.6-15.0)
[2018-11-05 13:31] VITALS: BP 123/44
--- NOTE | 2018-11-05 14:58 | NUR ---
NUTRITION F/U PT CURRENTLY NPO. WILL PROVIDE DIET WHEN RESUMED, MONITOR INTAKE. RD FOLLOWING
[2018-11-05 17:05] VITALS: BP 155/46
[2018-11-05 20:00] VITALS: BP 104/48
--- NOTE | 2018-11-05 20:00 | NUR ---
PT IS RESTING IN BED WITH EYES OPEN. ALERT AND ORIENTED X 3. PT DENIES ANY PAIN OR DISCOMFORT. SHE STATES SHE IS GOING HOME TOMORROW. TELEMETRY UNIT IS ON AND INTACT. LFA SALINE LOCK NOTED. SR'S ARE UP X 2 IN BED. CALL LIGHT AND BEDSIDE TABLE ARE WITHIN EASY REACH.
--- NOTE | 2018-11-05 22:28 | NUR ---
PT IS RESTING QUIETLY IN BED WITH EYES CLOSED. RESPS ARE EVEN AND UNLABORED. NO ACUTE DISTRESS NOTED.
--- NOTE | 2018-11-05 23:45 | NUR ---
ORDER FOR HEPARIN GTT NOTED WHILE DOING CHART CHECK. ORDER CHECKED WITH CHARGE NURSE, AND THEN IMPLEMENTED ORDERED.
[2018-11-06] VITALS (13 sets, daily range): BP systolic 102–139; BP diastolic 38–89
--- NOTE | 2018-11-06 00:53 | NUR ---
PT RESTING IN BED WITH EYES CLOSED.
--- NOTE | 2018-11-06 03:23 | NUR ---
PT RESTING QUIETLY IN BED WITH EYES CLOSED.
[2018-11-06 05:59] LABS: BASOPHILS 0.3 % (0-2); EOSINOPHILS 1.4 % (0-7); HEMATOCRIT 38.1 % (36.0-48.0); HEMOGLOBIN 12.3 g/dL (12-16); IMMATURE GRANULOCYTES 0.1 % (0-5); LYMPHOCYTES 46.4 % (15-50); MCH 32.2 pg (26.0-34.0); MCHC 32.3 g/dL (31.0-37.0); MCV 99.7 fL (80.0-100.0); MEAN PLATELET VOLUME 11.5 fL (7.4-10.4); MONOCYTES 7.4 % (2-11); NEUTROPHILS 44.4 % (40-80); PLATELET COUNT 156 10x3/uL (130-400); RBC 3.82 10x6/uL (4.00-5.40); RDW 15.5 % (11.5-14.5)
[2018-11-06 06:20] LABS: CALC OSMOLALITY 282 mosm/kg (275-300); CALCIUM 8.9 mg/dL (8.5-10.1); CARBON DIOXIDE 26.1 mmol/L (21.0-32.0); CHLORIDE - SERUM 101 mmol/L (98-107); GLUCOSE 193 mg/dL (74-106); POTASSIUM - SERUM 3.5 mmol/L (3.5-5.1); SODIUM 138 mmol/L (136-145); UREA NITROGEN 17 mg/dL (7-18); eGFR NON AFRICAN AMERICAN 76 mL/min (90-120)
[2018-11-06 06:23] LABS: CREATININE - SERUM 0.8 mg/dL (0.6-1.3)
--- NOTE | 2018-11-06 08:20 | NUR ---
AWAKE AND ALERT. ORIENTED X3. NO C/O THIS AM. LUNGS ARE CLEAR BILATERALLY, NO COUGH NOTED. SKIN IS INTACT WITHOUT REDNESS. IV TO LEFT WRIST IS PATENT WITHOUT REDNESS AT INSERTION SITE. UP TO BR PER SELF. VOIDED WITHOUT DIFFICULTY. DENIES NEEDS.
--- NOTE | 2018-11-06 11:01 | NUR ---
TO RETAIL GREETER PER BED WITH RETAIL GREETER STAFF
--- NOTE | 2018-11-06 12:20 | NUR ---
2L NC, NO RESP DISTRESS. RIGHT GROIN 6F EXOSEAL CDI, NO BLEEDING OR HEMATOMA NOTED. NO C/O PAIN OR NAUSEA. VSS. CALL LIGHT WITHIN REACH.
[2018-11-06 12:38] LABS: HEMATOCRIT 39.7 % (36.0-48.0); HEMOGLOBIN 12.9 g/dL (12-16); MCH 32.5 pg (26.0-34.0); MCHC 32.5 g/dL (31.0-37.0); MEAN PLATELET VOLUME 11.1 fL (7.4-10.4); RBC 3.97 10x6/uL (4.00-5.40); RDW 15.2 % (11.5-14.5); WBC 7.9 10x3/uL (4.8-10.8)
--- NOTE | 2018-11-06 12:50 | NUR ---
VOIDED 300CC ONTO BEDPAN. RIGHT GROIN 6F EXOSEAL CDI, NO BLEEDING OR HEMATOMA NOTED. NO NEEDS VOICED AT THIS TIME. VSS. WILL CONTINUE TO MONITOR.
[2018-11-06 12:54] LABS: ALBUMIN 3.6 g/dL (3.4-5.0); ALKALINE PHOSPHATASE 74 U/L (46-116); ALT (SGPT) 23 U/L (10-68); BILIRUBIN - TOTAL 0.47 mg/dL (0.2-1.3); CALC OSMOLALITY 272 mosm/kg (275-300); CHLORIDE - SERUM 98 mmol/L (98-107); CREATININE - SERUM 0.8 mg/dL (0.6-1.3); GLUCOSE 172 mg/dL (74-106); POTASSIUM - SERUM 3.7 mmol/L (3.5-5.1); PROTEIN - SERUM 7.2 g/dL (6.4-8.2); SODIUM 134 mmol/L (136-145); UREA NITROGEN 15 mg/dL (7-18); eGFR NON AFRICAN AMERICAN 76 mL/min (90-120)
[2018-11-06 12:58] LABS: INR 1.16 (0.85-1.17); PROTIME 14.3 SECONDS (11.6-15.0)
--- NOTE | 2018-11-06 13:05 | NUR ---
RESTING COMFORTABLY WITH NO C/O. RIGHT GROIN 6F EXOSEAL CDI, NO BLEEDING OR HEMATOMA NOTED. DENIES ANY NEEDS AT THIS TIME. VSS. FAMILY AT BEDSIDE, CALL LIGHT WITHIN REACH.
--- NOTE | 2018-11-06 13:35 | NUR ---
CONTINUES TO REST QUIETLY WITH EYES CLOSED. RIGHT GROIN 6F EXOSEAL CDI, NO BLEEDING OR HEMATOMA NOTED. VSS. WILL CONTINUE TO MONITOR.
--- NOTE | 2018-11-06 14:05 | NUR ---
RESTING COMFORTABLY WITH EYES CLOSED. RIGHT GROIN 6F EXOSEAL CDI, NO BLEEDING OR HEMATOMA NOTED. VSS. CALL LIGHT WTIHIN REACH.
[2018-11-06 14:28] LABS: APTT > 200.0 SECONDS (22.8-39.4)
--- NOTE | 2018-11-06 15:05 | NUR ---
HOB ELEVATED 30 DEGREES. RIGHT GROIN 6F EXOSEAL CDI, NO BLEEDING OR HEMATOMA NOTED. SIPPING ON DRINK AND EATING SANDWICH WITH NO C/O NAUSEA. VSS. WILL CONTINUE TO MONITOR CLOSELY.
--- NOTE | 2018-11-06 15:50 | NUR ---
REPORT GIVEN TO KATHERYN MONTEZ IN CVICU.
--- NOTE | 2018-11-06 16:00 | NUR ---
RECEIVED PATIENT FROM GLASS BENDER NURSE MT. VSS. AWAKE AND ALERT. PEDAL RIGHT PEDAL PULSE PALPABLE. RIGHT GROIN INSERTION SITE CLEAN AND DRY. NORMAL SINUS RHYTHM. WILL CONTINUE TO MONITOR
--- NOTE | 2018-11-06 16:00 | NUR ---
TRANSFERRED VIA WHEELCHAIR TO ROOM 06.
--- NOTE | 2018-11-06 17:15 | NUR ---
BG 268. UNABLE TO ADMNISTER INSULIN PHARMACY HAS NOT BROUGHT ANY UP YET. NOTIFIED PHARMACY.
--- NOTE | 2018-11-06 17:38 | NUR ---
OBTAINED CONSENTS FOR PROCEDURES TOMORROW, ANESTHESIA, AND BLOOD.
--- NOTE | 2018-11-06 18:29 | NUR ---
SERVED DINNER TRAY. PATIENT ATE 100% DINNER. RESTING IN BED WITH VSS. CALL GUTIÉRREZ IN REACH
--- NOTE | 2018-11-06 19:10 | NUR ---
Received patient resting in bed with eyes open, assessment completed per flowsheet. Patient AO x4, calm and cooperative. S1/S2 noted NSR on telemetry with HR 67, rythmic and regular. Breathing is even/unlabored on room air with O2 sat 94%, lung sounds clear throughout. R groin previous cath site with dressing CDI, site soft to palpation with no bleeding/drainage noted. All pulses palpable with cap refill < 3 sec, skin warm/dry. Denies pain or other needs at this time, see flowsheet for details. All VSS and will continue to monitor.
--- NOTE | 2018-11-06 21:00 | NUR ---
Patient resting in bed with eyes closed, HS meds given without difficulty. Discussed medications, all questions answered to satisfaction. Denies pain or other needs at this time, all VSS and will continue to monitor.
--- NOTE | 2018-11-06 23:10 | NUR ---
Reassessment completed per flowsheet, no changes from previous assessment. S1/S2 noted NSR on telemetry, rythmic and regular. Breathing in even/unlabored on room air with O2 sat 94%, lung sounds clear throughout. R groin cath site dressing CDI, soft to palpation with no bleeding/drainage noted. All pulses palpable with cap refill < 3 sec, skin warm/dry. Denies pain or other needs at this time, see flowsheet for details. All VSS and will continue to monitor.
[2018-11-07] VITALS (28 sets, daily range): BP systolic 100–123; BP diastolic 36–59
--- NOTE | 2018-11-07 01:10 | NUR ---
Patient sleeping in bed with eyes closed, no s/s of distress at this time. Denies pain or other needs, all VSS and will continue to monitor.
--- NOTE | 2018-11-07 03:10 | NUR ---
Reassessment completed per flowsheet, no changes from previous assessment. S1/S2 noted NSR on telemetry, rhythmic and regular. Breathing is even/unlabored on room air with O2 sat 94%, lung sounds clear throughout. R groin cath site dressing CDI, site soft to palpation with no bleeding/drainage noted. All pulses palpable with cap refill < 3 sec, skin warm/dry. Denies pain or other needs at this time, see flowsheet for details. All VSS and will continue to monitor.
[2018-11-07 04:19] LABS: BASOPHILS 0.6 % (0-2); EOSINOPHILS 1.3 % (0-7); HEMATOCRIT 39.7 % (36.0-48.0); HEMOGLOBIN 12.8 g/dL (12-16); IMMATURE GRANULOCYTES 0.4 % (0-5); LYMPHOCYTES 24.1 % (15-50); MCH 32.2 pg (26.0-34.0); MCHC 32.2 g/dL (31.0-37.0); MEAN PLATELET VOLUME 11.5 fL (7.4-10.4); MONOCYTES 9.2 % (2-11); NEUTROPHILS 64.4 % (40-80); PLATELET COUNT 147 10x3/uL (130-400); RBC 3.97 10x6/uL (4.00-5.40); RDW 15.2 % (11.5-14.5)
[2018-11-07 04:24] LABS: WBC 5.2 10x3/uL (4.8-10.8)
[2018-11-07 04:38] LABS: ANION GAP 12.9 mmol/L (8-16); CALCIUM 9.1 mg/dL (8.5-10.1); CARBON DIOXIDE 29.6 mmol/L (21.0-32.0); CREATININE - SERUM 0.9 mg/dL (0.6-1.3); POTASSIUM - SERUM 3.5 mmol/L (3.5-5.1)
--- NOTE | 2018-11-07 05:10 | NUR ---
Tremaine at [facility], surgical site marked. ЕЛЕНА Hernandez/KENNEDY in place, Chlorhexidine bath given. K+ 3.5 treated per protocol, R forearm IV patent and dressing changed. No further needs at this time, all VSS and will continue to monitor.
--- NOTE | 2018-11-07 07:00 | NUR ---
RECEIVED PATIENT FROM NIGHT NURSE. PATIENT WAKES EASILY AND IS ALERT AND ORIENTED. VSS. ЕЛЕНА HOSE AND SCD HOSE ON. IV TO LEFT FOREARM 20 GUAGE FLUSHES AND IS SALINE LOCKED. ON ROOM AIR WITH CLEAR LUNG RUBIN. NIGHT NURSE GAVE CHLORHEXADINE BATH LAST NIGHT. WILL CONTINUE TO MONITOR
--- NOTE | 2018-11-07 08:37 | NUR ---
ADMINISTERED SELECT MORNING MEDS PER ORDERS.
--- NOTE | 2018-11-07 09:30 | NUR ---
SURGERY CALLED TO PREOP PATIENT. PREOP ORDERS HAVE BEEN DC'D BY DR. MORE. CALLED DR. MORE VERIFY THIS. DR. MORE SAID IT WAS MISTAKE AND WILL REORDER PREOP MEDS
--- NOTE | 2018-11-07 10:07 | NUR ---
PREOP MEDS GIVEN. HELD NITRO OINTMENT BECAUSE NURSES COLLECTIVELY BELIEVE THIS ORDER WAS A MISTAKE.
--- NOTE | 2018-11-07 10:20 | NUR ---
REPORT GIVEN TO SCOTT CAMPA.
--- NOTE | 2018-11-07 11:19 | NUR ---
TAKEN TO SURGERY AT THIS TIME.
--- NOTE | 2018-11-07 12:46 | NUR ---
Pt has had minimal intake since admit Pt current orders are NPO past MN Will follow up tomorrow
--- NOTE | 2018-11-07 15:00 | NUR ---
PT ARRIVED TO ROOM AT 1454. EYES OPEN. FOLLOWS DIRECTIONS. LEFT JUGULAR DRESSING NOTED WITH MARTA DRAIN ON LEFT UPPER CHEST. BLOODY DRAINAGE NOTED IN MARTA. HAS R-SUBCLAVIAN CVL WITH PLASMOLYTE AT 30ML/HR. ICE PACK PLACED OVER INCISION. BARNES IN PLACE WITH CLEAR YELLOW URINE NOTED. A LINE ON L RADIAL. EXTREMITY WARM AND PINK. WILL CONTINUE TO MONITOR.
--- NOTE | 2018-11-07 17:36 | NUR ---
PULLED A-LINE AT THIS TIME. PT STATED THAT IT WAS BOTHERING HER, SO SHE JUST TOOK IT OUT. EXPLAINED TO PT THAT THE A-LINE WAS IN HER RADIAL ARTERY. SHE COULD HAVE BLEED OUT. EXPLAINED TO PATIENT THAT SHE HAD A CVL IN HER RIGHT SIDE OF CHEST. ENCOURAGED NOT TO TAKE IT OUT. ALSO REMINDED PT NOT TO TAKE OUT HER MARTA DRAIN. PT ABLE TO STATE WHERE SHE IS, WHAT HER NAME IS AND DATE OF . ANSWERS QUESTIONS APPROPRIATED. WILL CONTINUE TO MONITOR. DR. DESAI NOTIFIED BY CHARGE NURSE.
--- NOTE | 2018-11-07 17:44 | NUR ---
NIBP 104/43 WITH MAP 66 AT THIS TIME.
--- NOTE | 2018-11-07 18:00 | NUR ---
PT ASLEEP AT THIS TIME. WILL CONTINUE TO MONITOR.
--- NOTE | 2018-11-07 19:15 | NUR ---
Received patient resting in bed with eyes closed, assessment completed per flowsheet. Patient AO x4, answers appropriately/follows instructions. L anterior neck incision dressing CDI, no difficulties breathing/swallowing noted. MARTA x1 with scant bloody drainage, compressed with dressing CDI. S1/S2 noted NSR on telemetry with HR 71, rythmic and regular. Breathing is shallow/unlaobred on 4L via NC with O2 sat 95%, lung sounds clear bilateral upper and mid with diminished lower. Criticore secured, clear yellow urine noted. All pulses palpable with cap refill < 3 sec, skin warm/dry. C/O headache 01/09, PRN Tramadol given as ordered. No further needs at this time, see flowsheet for details. All VSS and will continue to monitor.
--- NOTE | 2018-11-07 20:40 | NUR ---
Patient continues to C/O of headache, PRN Morphine given as ordered. Patient responds appropriately to questions, follows commands. Eyes PERRLA @ 4mm with brisk response, sclera is clear/white. No edema/drainage noted at incision site, dressing CDI. Patient swallows clear liquids without difficulty, no difficulty breathing observed. Will reassess and continue to monitor.
[2018-11-07 21:23] LABS: APPEARANCE CLEAR (CLEAR); COLOR YELLOW (YELLOW)
[2018-11-07 21:27] LABS: BILIRUBIN NEGATIVE (NEGATIVE); GLUCOSE 250 mg/dL (NEGATIVE); KETONE NEGATIVE (NEGATIVE); NITRITE POSITIVE (NEGATIVE); PROTEIN NEGATIVE (NEGATIVE); UROBILINOGEN NORMAL (NORMAL)
[2018-11-07 21:29] LABS: AMORPHOUS SEDIMENT <1+ /lpf (NONE SEEN); BACTERIA MODERATE /hpf (NONE SEEN); EPITHELIAL CELLS 0-5 /hpf (0-5); MUCUS <1+ /lpf (NONE SEEN); RED CELLS - URINE 0-5 /hpf (0-5); WHITE CELLS - URINE 0-5 /hpf (0-5)
--- NOTE | 2018-11-07 22:32 | NUR ---
Patient still C/O headache, states she is prescribed "Percocet for headache at home". No further PRN medications available at this time, will attempt to reposition and provide other non-narcotic methods for relief.
--- NOTE | 2018-11-07 23:10 | NUR ---
Reassessment completed per flowsheet, no chnages from previous assessment. Patient AO x4, follows commands/answers appropriately. L anterior neck incision dressing CDI, no difficulty breathing/swallowing noted. MARTA x1 with scant bloody drainage, compressed with dressing CDI. R groin previous cath site incision, small bruising noted with no bleeding/drainage. All pulses palpable with cap refill < 3 sec, skin warm/dry. C/O headache 12/09, will provide PRN medication when available. No further needs at this time, see flowsheet for details. All VSS and will continue to monitor.
[2018-11-08] VITALS (16 sets, daily range): BP systolic 98–115; BP diastolic 40–53
--- NOTE | 2018-11-08 01:00 | NUR ---
Patient sleeping in bed with eyes closed, no s/s of distress at this time. L anterior incision dressing CDI, MARTA x1 with scant bloody drainage. No difficulties breathing/swallowing noted. No further needs and will continue to monitor.
--- NOTE | 2018-11-08 01:31 | NUR ---
Patient awake and C/O headache /10, PRN Morphine given as ordered. Patient AO x4, answers appropriately/follows instructions. Eyes PERRLA @ 4mm with brisk response, sclera clear/white. Shipfitter Apprentice/Pedal strength equal bilateral, all pulses palpable. No difficulties swallowing/breathing observed, L anterior neck dressing CDI. Will continue to monitor.
--- NOTE | 2018-11-08 03:00 | NUR ---
Reassessment completed per flowsheet, no changes from previous assessment. Patient AO x4, follows instructions/answers appropriately. L anterior neck dressing CDI, no difficulty breathing/swallowing noted. MARTA x1 with scant bloody drainage, compressed with dressing CDI. S1/S2 noted NSR on telemetry, rythmic and regular. Breathing is shallow/unlabored on 2L via NC with O2 sat 96%, lung sounds clear bilateral upper and mid with diminished lower. R groin previous cath site, small bruising noted with no bleeding/drainage. All pulses palpable with cap refill < 3 sec, skin warm/dry. Denies pain or other needs at this time, see flowsheet for details. All VSS and will continue to monitor.
--- NOTE | 2018-11-08 05:00 | NUR ---
Patient resting in bed with eyes closed, denies pain or other needs at this time. L anterior incision dressing CDI, no bleeding/drainage noted. MARTA x1 with scant bloody drainage, compressed with dressing CDI. All VSS and will continue to monitor.
--- NOTE | 2018-11-08 05:40 | NUR ---
MARTA output 35ml, removed by Tremaine. Small bleeding noted after removal, dressed/covered with Tegaderm and weight placed over for site for 30 min.
--- NOTE | 2018-11-08 06:10 | NUR ---
Blood noted beneath dressing, reinforced with sandbag placed over dressing site. Will continue to monitor for bleeding.
[2018-11-08 06:12] LABS: BASOPHILS 0.4 % (0-2); EOSINOPHILS 1.8 % (0-7); HEMATOCRIT 36.9 % (36.0-48.0); HEMOGLOBIN 11.7 g/dL (12-16); IMMATURE GRANULOCYTES 0.1 % (0-5); LYMPHOCYTES 36.4 % (15-50); MCHC 31.7 g/dL (31.0-37.0); MCV 100.8 fL (80.0-100.0); MEAN PLATELET VOLUME 11.4 fL (7.4-10.4); MONOCYTES 9.4 % (2-11); NEUTROPHILS 51.9 % (40-80); PLATELET COUNT 146 10x3/uL (130-400); RBC 3.66 10x6/uL (4.00-5.40); RDW 15.5 % (11.5-14.5)
[2018-11-08 06:28] LABS: WBC 7.7 10x3/uL (4.8-10.8)
[2018-11-08 06:33] LABS: CALC OSMOLALITY 283 mosm/kg (275-300); CALCIUM 8.6 mg/dL (8.5-10.1); CARBON DIOXIDE 30.7 mmol/L (21.0-32.0); CHLORIDE - SERUM 101 mmol/L (98-107); CREATININE - SERUM 0.8 mg/dL (0.6-1.3); GLUCOSE 115 mg/dL (74-106); POTASSIUM - SERUM 3.3 mmol/L (3.5-5.1); SODIUM 141 mmol/L (136-145); UREA NITROGEN 18 mg/dL (7-18); eGFR NON AFRICAN AMERICAN 76 mL/min (90-120)
--- NOTE | 2018-11-08 10:02 | NUR ---
NUTRITION F/U NURSING REPORTS PT TOLERATING CLEAR LIQUID DIET, TO ADVANCE TO REG DIABETIC. WILL PROVIDE DIET, MONITOR PO INTAKE. RD FOLLOWING
--- NOTE | 2018-11-08 17:10 | OP ---
PATIENT NAME: CELI SHIPMAN MEDICAL RECORD: [id number] :51 LOCATION:[facility] ADMISSION DATE:11/03/18 SURGEON: SANDIE HANSON MD DATE OF OPERATION: 11/06/2018 DATE OF SERVICE: 11/06/2018 PROCEDURE: 1. PTCA stent RCA. 2. PTCA stent left circumflex. 3. Left heart catheterization. 4. Selective coronary angiography. 5. Left ventriculogram. INDICATION: Angina and coronary artery disease. PROCEDURE IN DETAIL: After informed consent was obtained and after a detailed description of risks, benefits as well as alternative therapies, the patient elected to proceed with angiogram and angioplasty. The right femoral area had a preexisting sheath from carotid angiography. All catheters exchanged through this sheath. FINDINGS: Left ventriculogram was performed in standard 30-degree SALINAS view, reveals good cardiac wall motion throughout all segments. Overall ejection fraction estimated at 60%. SELECTIVE CORONARY ANGIOGRAPHY: 1. Left main is with no significant angiographic disease. 2. Left anterior descending has moderate irregularities, but no flow-limiting stenosis. 3. The left circumflex has a long area of 80% to 90% stenosis in mid vessel. 4. Right coronary has 80+ percent stenosis proximally. PTCA STENT OF THE RCA: The stent used was a 2.75 x 18-mm [place]. Result was 0% residual stenosis. PTCA STENT OF THE LEFT CIRCUMFLEX: Stents used were 2.25 x 38 and 2.25 X 15, both Kyle stents. Result was 0% residual stenosis. OVERALL IMPRESSION: Successful percutaneous transluminal coronary angioplasty stent of the right coronary artery and left circumflex going from 80% to 90% initial stenosis to 0% residual. TRANSINT:[id number] Voice Confirmation ID: [id number] DOCUMENT ID: [id number] SANDIE HANSON MD at 1710 CC: [id number] DICTATION DATE: 11/06/18 1156 PUBLIC ADDRESS SYSTEM MECHANIC: 11/06/18 1226 [place] [address]
--- NOTE | 2018-11-08 17:10 | OP ---
PATIENT NAME: CELI SHIPMAN MEDICAL RECORD: [id number] :[birth year] LOCATION:[facility] ADMISSION DATE:11/03/18 SURGEON: SANDIE HANSON MD DATE OF OPERATION: 11/06/2018 DATE OF SERVICE: 11/06/2018 PROCEDURE: Four-vessel carotid and vertebral angiography. INDICATION: Carotid vascular disease, altered mental status. DESCRIPTION OF PROCEDURE: After informed consent was obtained and after a detailed explanation of risks, benefits as well as alternative therapies, the patient elected to proceed with angiogram and carotid angiography. The right femoral area was prepped and draped in normal sterile fashion. Right femoral artery was cannulated via modified Seldinger technique with placement of 5-Palauan sheath. All catheters exchanged through this sheath. FINDINGS: There was subselection of each subclavian as well as the left carotid. Right side, common internal and external carotids have mild plaquing, none greater than 40%, no flow-limiting stenosis. Vertebral artery has no significant stenosis. LEFT SYSTEM: The common and external carotids have no significant disease. The internal carotid has 99% stenosis just after the bulb. Vertebral artery has no significant disease. OVERALL IMPRESSION: A 99% stenosis left internal carotid, evaluate for carotid endarterectomy. TRANSINT:[id number] Voice Confirmation ID: [id number] DOCUMENT ID: [id number] SANDIE HANSON MD at 1710 CC: [id number] DICTATION DATE: 11/06/18 1156 ENERGY OPERATIONS VICE PRESIDENT: 11/06/18 1226 ADM IN [place] [id number] [place] [address]
[2018-11-09] VITALS (7 sets, daily range): BP systolic 105–134; BP diastolic 33–57
--- NOTE | 2018-11-09 02:00 | NUR ---
1900- REPORT RECEIVED, ASSESSMENT PER FLOW SHEET, PT AAOx4, DENIES PAIN OR NEEDS AT THIS TIME, ABLE TO AMBULATE WITH MINIMAL ASSIST, VSS, WILL CONTINUE TO MONITOR 2100- NO ACUTE DISTRESS NOTED, PT REPOSITIONES WITHOUT ASSIST, VSS 2300- REASSESSMENT PER FLOW SHEET, NO ACUTE CHANGES OR DISTRESS NOTED, PT DENIES PAIN, VSS, WILL CONTINUE TO MONITO 0100- PT UP TO BATHROOM AND BACK TO BED WITH ,IMIMAL ASSIST, VSS, WILL CONTINUE TO ASSSESS
--- NOTE | 2018-11-09 03:00 | NUR ---
REASSESSMENT COMPLETE, NO ACUTE CHANGE, PT OOB TO BATHROOM WITH MINIMAL ASSIST, VSS, WILL CONTINUE TO ASSESS
[2018-11-09 04:25] LABS: HEMATOCRIT 33.1 % (36.0-48.0); HEMOGLOBIN 10.3 g/dL (12-16); MCHC 31.1 g/dL (31.0-37.0); MEAN PLATELET VOLUME 11.4 fL (7.4-10.4); RBC 3.22 10x6/uL (4.00-5.40); RDW 15.4 % (11.5-14.5); WBC 9.2 10x3/uL (4.8-10.8)
[2018-11-09 04:31] LABS: MCV 102.8 fL (80.0-100.0)
[2018-11-09 04:41] LABS: ALBUMIN 2.9 g/dL (3.4-5.0); ALKALINE PHOSPHATASE 77 U/L (46-116); ALT (SGPT) 19 U/L (10-68); BILIRUBIN - TOTAL 0.24 mg/dL (0.2-1.3); CALC OSMOLALITY 284 mosm/kg (275-300); CALCIUM 8.4 mg/dL (8.5-10.1); CARBON DIOXIDE 31.2 mmol/L (21.0-32.0); CHLORIDE - SERUM 101 mmol/L (98-107); CREATININE - SERUM 0.7 mg/dL (0.6-1.3); POTASSIUM - SERUM 3.6 mmol/L (3.5-5.1); PROTEIN - SERUM 6.3 g/dL (6.4-8.2); SODIUM 140 mmol/L (136-145); UREA NITROGEN 19 mg/dL (7-18); eGFR NON AFRICAN AMERICAN 89 mL/min (90-120)
[2018-11-09 04:42] LABS: GLUCOSE 166 mg/dL (74-106)
--- NOTE | 2018-11-09 05:00 | NUR ---
PT UP IN CHAIR, BATH GIVEN, VSS, NO NEEDS OR DISTRESS NOTED
--- NOTE | 2018-11-09 07:35 | NUR ---
AWAKE AND ALERT. RESTING COMFORTABLY. DENIES PAIN. HAS CVL ON R-SUB WITH PLASMOLYTE AT 30ML/HR. DRESSING ON LEFT ANTERIOR NECK CDI. LUZ MARINA CHEST PREVIOUS MARTA DRAIN SITE WITH DRESSING INTACT. VSS. NO FEVER. NO FURTHER NEEDS. WILL CONTINUE TO MONITOR.
[2018-11-09] MEDS ORDERED: ULTRAM50 MG PO (08:07)
--- NOTE | 2018-11-09 08:50 | NUR ---
RIGHT SUBCLAVIAN CVL DC'D PER ORDERS AT THIS TIME.
--- NOTE | 2018-11-09 09:52 | NUR ---
DISCHARGE INTRUCTIONS GIVEN TO PT. WAITING ON RIDE TO COME PICK HER UP.
--- NOTE | 2018-11-09 11:07 | MORECARE ---
CASE MANAGEMENT DISCHARGE SUMMARY PATIENT: CELI SHIPMAN UNIT: [id number] ADM DATE: 11/03/18 AGE: 63 : 51 SEX: F ROOM/BED: D.06 AUTHOR: LYSSADOC PHYSICIAN: REFERRING PHYSICIAN: JENNIFER FRIEND MD DATE OF SERVICE: 11/09/18 Discharge Plan Patient Name: CELI SHIPMAN Facility: [facility]:[place] : 1955 Planned Disposition: Home Anticipated Discharge Date: Discharge Date: 11/09/2018 Expected LOS: Initial Reviewer: [email or web address] Initial Review Date: 11/02/2018 Generated: 11/09/18 12:07 pm Comments DCP- Discharge Planning Updated by [email or web address]: Li Santana on 11/09/18 10:[address] Patient Name: CELI SHIPMAN Admission Status: ER Accout number: [id number] Admission Date: 11-03-2018 : 1955 Admission Diagnosis:ALTERED MENTAL STATUS, UNSPECIFIED Attending: JENNIFER FRIEND Current LOS: 6 Anticipated DC Date: Planned Disposition: Home Primary Insurance: MEDICARE A & B Discharge Planning Comments: CM met with patient she deines any discharge needs. D/C IMM explained and served at 11/09/18 @ 2979. CM will continue to follow and assist as needed with discharge planning / needs. Direct Support Worker: Li Santana DCP- Discharge Planning Updated by [email or web address]: Albina Mckeon on 11/05/18 11:[address] CM spoke with pt. She lives home with her 85 year old mother, Shavonne Cee, who will pick her up at discharge. Her phone # is [phone]. Pt's sister, who is confined to due to stroke, also lives in the home. Pt and mother provide her care. Patient states she drives herself and is independent. She is diabetic and uses a glucometer, but denies any other devices. She declines any needs for home health or other services at this time. CM will continue to follow and assist as needed. DCPIA - Discharge Planning Initial Assessment Updated by [email or web address]: Albina Mckeon on 11/05/18 12:10 pm * Is the patient Alert and Oriented? Yes * How many steps to enter\exit or inside your home? RAMP/0 * PCP Dr. Frederick * [facility] [place] [address] * Preadmission Environment Home with Family * ADLs Independent * Equipment Glucometer * Other Equipment none * List name and contact numbers for known caregivers / representatives who currently or will assist patient after discharge: MotherShavonne [phone] * Verbal permission to speak to the caregivers and representatives has been obtained from the patient. Yes * Additional services required to return to the preadmission environment? No * Can the patient safely return to the preadmission environment? Yes * Has this patient been hospitalized within the prior 30 days at any hospital? No Coverage Notice Reviewer: [email or web address] Whitney Santana Notice Issued Date-Time: 11/09/2018 9:25 Notice Type: IM Discharge Notice Notice Delivered To: Patient Relationship to Patient: Self Sample Box Maker Name: Delivery Method: HAND - Hand Delivered Nikole Days: Prior Verbal Notification: Recipient Understood Notice: Yes Recipient Signature: Yes Med Rec Note Co-signed by Attending: Coverage Notice Comment: Last DP export: 11/05/18 11:16 am Patient Name: CELI SHIPMAN Page [id number] at 1107 All edits/amendments must be made on the electronic document DICTATION DATE: 11/09/181106 EDGER HAND: JOJO 11/09/181106 RPT#: [id number] DC DATE:11/09/18 STATUS: DIS IN [facility] [address] [place] [address] END OF REPORT
--- NOTE | 2018-11-09 12:22 | EC ---
PATIENT:CELI SHIPMAN DATE OF SERVICE: 11/03/18 SEX: F MEDICAL RECORD: [id number] DATE OF : [birth year] LOCATION:[place] [address] AGE OF PATIENT: 63 ADMISSION DATE: 11/03/18 REFERRING PHYSICIAN: INTERPRETING PHYSICIAN: TANVIR RODRIGEZ MD ECHOCARDIOGRAM REPORT ECHO CHARGES 4 ECHO COMPLETE Date: 11/03/18 CLINICAL DIAGNOSIS: TIA ECHOCARDIOGRAPHIC MEASUREMENTS (adult normal given) AC root (d.<3.7cm) 3.0 cm LV Septum d (<1.2 cm> 1.3 cm Valve Excursion 1.8 cm LV Septum (systole) 2.0 cm Left Atria (s.<4.0cm> 3.4 cm LVPW d(<1.2cm) 1.1 cm RV (d.<2.3cm) 2.0 cm LVPW (sytole) 1.6 cm LV diastole(<5.6CM) 3.9 cm MV E-F(>70mm/sec) cm LV systole 2.7 cm LVOT Diameter 1.7 cm MV exc.(>10mm) cm Est.ejection fraction (50-75%) % DOPPLER: LVIT cm/sec A 136 cm/sec E 75.0 cm/sec LA cm/sec RVSP 18.0 mmHg LVOT 141 cm/sec AOP1/2T m/s Asc. Ao 232 cm/sec RVOT 90.0 cm/sec RA cm/sec PA 102 cm/sec AV Gradient Peak 22.0 mmHg AV Mean 11.0 mmHg AV Area 1.5 cm MV Gradient Peak 7.7 mmHg MV Mean 2.6 mmHg MV Area cm COMMENTS: Surveyor Oil Well Directional: 1 SHON ALVARADOOE Legal Services Manager: 3 Dr. Poole TAPE# PACS Pericardial Effusion Y DATE OF SERVICE: Adequate 2-D echo, color flow and spectral Doppler, and M-mode. LVH is present. LV internal dimensions are normal. Wall motion is normal. EF is greater than or equal to 25%. Aortic valve is sclerotic without evidence of stenosis by Doppler interrogation. Left atrium is normal at 3.4 cm. Mitral valve shows no prolapse. Trace MR. Right-sided chambers are normal. Trace TR. TRANSINT:[id number] Voice Confirmation ID: [id number] DOCUMENT ID: [id number] ECHOCARDIOGRAM REPORT [id number] CELI SHIPMAN,TANVIR Schaeffer MD at 1222 CC: [id number] DICTATION DATE: 11/04/18956 WELDING ENGINEER: 11/04/18 1333 DIS IN 11/09/18 [place] [address] [place] [id number]
--- NOTE | 2018-11-10 12:29 | OP ---
PATIENT NAME: CELI SHIPMAN MEDICAL RECORD: [id number] :51 LOCATION[place] [id number] ADMISSION DATE:11/03/18 SURGEON: REJI DESAI MD DATE OF OPERATION: 11/07/2018 SURGEON: Reji Desai MD ANESTHESIA: General endotracheal, Dr. Knutson. OPERATION PERFORMED: Left carotid endarterectomy with patch angioplasty. PREOPERATIVE DIAGNOSIS: Severe left internal carotid artery stenosis. POSTOPERATIVE DIAGNOSIS: Severe left internal carotid artery stenosis. INDICATION FOR OPERATION: Critical left internal carotid artery stenosis. FINDINGS AT OPERATION: Critical left internal carotid artery stenosis. There was no EEG change with clamping or unclamping of the artery. ESTIMATED BLOOD LOSS: Less than 100 mL. DESCRIPTION OF PROCEDURE: After informed consent, adequate preoperative medication evaluation, the patient was brought to the operating room, placed on the table in the supine position. After induction of general endotracheal anesthesia and application of appropriate monitoring devices, left neck was prepped and draped in a sterile field, utilizing Betadine scrub, alcohol, and Betadine solution. Betadine-impregnated drape was also used. An oblique incision was made in the skin crease. Dissection carried down the fascia. Hemostasis maintained with electrocautery. Facial vein was identified and divided. Utilizing sharp dissection, the common carotid, internal and external carotid arteries were dissected free from surrounding structures, protecting the neurological structures. The patient was given a calculated dose of heparin, after 3 minutes, clamps were applied. After 2 minutes, no EEG change. The arteriotomy was made and extended with Lisa scissors. Artery underwent endarterectomy sharply. Artery underwent extensive debridement and irrigation. Utilizing a vascular patch and running 7-0 Prolene suture, the arteriotomy was closed with a patch angioplasty technique. All maneuvers to remove trapped air were performed. The clamps were removed sequentially. There were no EEG changes. The patient was given a calculated dose of protamine to reverse the heparin. Hemostasis was achieved. A #7 Bijan-Corona drain was left in depths of wound and brought through the base of the neck. Neck was again irrigated. Instrument count and sponge count were correct times 2. Neck was closed in layers utilizing 3-0 Vicryl on the platysma, 5-0 subcuticular Monocryl on the skin. Sterile dressings were applied. The patient tolerated the procedure well and transferred to cardiovascular recovery in satisfactory condition. TRANSINT:[id number] Voice Confirmation ID: [id number] DOCUMENT ID: [id number] OPERATIVE REPORT [id number] CELI SHIPMAN EDWARD MD at 1229 CC: [id number] DICTATION DATE: 11/07/18 1503 DRAIN TILE PRESS OPERATOR: 11/07/18 2221 DIS IN 11/09/18 [place] [id number] [place] [id number]
== END 2018-11-09 10:52 | disposition home or self-care (01) | DRG 38 ==
LOC: D.ER 15:45 → D.EDHOLD 19:26 → OBSVTIME 19:26 → D.MS 19:26 → D.CVICU 11-03 13:39 → D.ICU 11-03 14:36 → D.MS 11-04 13:22 → D.CVICU 11-06 14:52
PROVIDERS: Family Medicine; Internal Medicine Cardiovascular Disease; Internal Medicine Interventional Cardiology; ADMIT Internal Medicine Nephrology
PROC: B2111ZZ Fluoroscopy of Multiple Coronary Arteries using Low Osmolar Contrast (ICD-10-PCS; 2018-11-06)
PROC: B2151ZZ Fluoroscopy of Left Heart using Low Osmolar Contrast (ICD-10-PCS; 2018-11-06)
PROC: 4A023N7 Measurement of Cardiac Sampling and Pressure, Left Heart, Percutaneous Approach (ICD-10-PCS; 2018-11-06)
PROC: B30 Imaging, Upper Arteries, Plain Radiography (ICD-10-PCS; 2018-11-06)
PROC: B30 Imaging, Upper Arteries, Plain Radiography (ICD-10-PCS; 2018-11-06)
PROC: B302ZZZ Plain Radiography of Left Subclavian Artery (ICD-10-PCS; 2018-11-06)
PROC: 027136Z Dilation of Coronary Artery, Two Arteries with Three Drug-eluting Intraluminal Devices, Percutaneous Approach (ICD-10-PCS; 2018-11-06 11:30)
PROC: 03UL0JZ Supplement Left Internal Carotid Artery with Synthetic Substitute, Open Approach (ICD-10-PCS; 2018-11-07)
PROC: 03CL0ZZ Extirpation of Matter from Left Internal Carotid Artery, Open Approach (ICD-10-PCS; principal; 2018-11-07 11:30)
DX: G93.40 Encephalopathy, unspecified (principal); E87.1 Hypo-osmolality and hyponatremia; I67.9 Cerebrovascular disease, unspecified; I25.10 Atherosclerotic heart disease of native coronary artery without angina pectoris; E78.5 Hyperlipidemia, unspecified; I11.0 Hypertensive heart disease with heart failure; I50.9 Heart failure, unspecified; I65.22 Occlusion and stenosis of left carotid artery; E11.65 Type 2 diabetes mellitus with hyperglycemia; F17.200 Nicotine dependence, unspecified, uncomplicated; R40.2363 Coma scale, best motor response, obeys commands, at hospital admission; R40.2143 Coma scale, eyes open, spontaneous, at hospital admission; R40.2243 Coma scale, best verbal response, confused conversation, at hospital admission

== ENCOUNTER 2018-11-25 18:40 | Inpatient (IN) | payer MEDICARE ==
[~2018-11-25] VITALS: Ht 167.6 cm; Wt 79.4 kg
[~2018-11-25 18:40] MED LIST changes: +ULTRAM50 MG PO
--- NOTE | 2018-11-25 18:44 | NUR ---
PT WENT STRAIGHT TO CT ON ARRIVAL.
[2018-11-25 19:13] VITALS: BP 127/46
--- NOTE | 2018-11-25 19:42 | NUR ---
CALLED REPORT TO RASHEEDA CAMPA AT [facility].
[2018-11-25 19:44] VITALS: BP 116/56
--- NOTE | 2018-11-25 19:45 | NUR ---
PER EDP PT IS ACCEPTED BY DR. MAS AND WILL NOT E TRANSFERRING TO [facility] AT THIS TIME.
--- NOTE | 2018-11-25 19:50 | NUR ---
ADVISED [facility] THAT PT IS NOT BEING TRANSFERRED.
--- NOTE | 2018-11-25 19:51 | NUR ---
CONTACTED [facility] AND ADVISED PT WILL NOT BE TRANSFERRED
--- NOTE | 2018-11-25 20:08 | NUR ---
PT LAYING IN BED AT THIS TIME. PT ATTEMPTING TO SIT UP. NURSE AT BEDSIDE. VSS. PT RESPIRATIONS ARE EVEN AND UNLABORED. NO DISTRESS NOTED. PT IS ORIENTED TO PERSON ONLY AT THIS TIME. PT BARNES DRAINING DARK YELLOW URINE TO GRAVITY AT THIS TIME. IV PATENT WITH NOS/S OF INFILTRATION NOTED.
[2018-11-25 20:15] LABS: BASOPHILS 0.4 % (0-2); HEMATOCRIT 38.8 % (36.0-48.0); HEMOGLOBIN 12.3 g/dL (12-16); IMMATURE GRANULOCYTES 0.2 % (0-5); LYMPHOCYTES 26.9 % (15-50); MCH 31.3 pg (26.0-34.0); MCHC 31.7 g/dL (31.0-37.0); MCV 98.7 fL (80.0-100.0); MEAN PLATELET VOLUME 11.5 fL (7.4-10.4); MONOCYTES 6.2 % (2-11); NEUTROPHILS 65.3 % (40-80); PLATELET COUNT 284 10x3/uL (130-400); RBC 3.93 10x6/uL (4.00-5.40); RDW 15.5 % (11.5-14.5); WBC 11.2 10x3/uL (4.8-10.8)
[2018-11-25 20:21] LABS: INR 1.03 (0.85-1.17)
[2018-11-25 20:30] LABS: ALBUMIN 3.7 g/dL (3.4-5.0); ALKALINE PHOSPHATASE 112 U/L (46-116); ALT (SGPT) 12 U/L (10-68); BILIRUBIN - TOTAL 0.22 mg/dL (0.2-1.3); CALC OSMOLALITY 294 mosm/kg (275-300); CALCIUM 8.5 mg/dL (8.5-10.1); CARBON DIOXIDE 24.2 mmol/L (21.0-32.0); CHLORIDE - SERUM 100 mmol/L (98-107); CREATININE - SERUM 1.5 mg/dL (0.6-1.3); POTASSIUM - SERUM 3.8 mmol/L (3.5-5.1); PROTEIN - SERUM 7.5 g/dL (6.4-8.2); SODIUM 139 mmol/L (136-145); UREA NITROGEN 33 mg/dL (7-18); eGFR NON AFRICAN AMERICAN 37 mL/min (90-120)
[2018-11-25 20:36] LABS: GLUCOSE 275 mg/dL (74-106)
[2018-11-25 20:45] LABS: CKMB 1.3 U/L (0.0-3.6); CREATINE KINASE 57 UL (21-215); PRO BNP 106 pg/mL (0-125); THYROID STIMULATING HORMONE 0.43 uIU/mL (0.36-3.74)
[2018-11-25 20:53] LABS: TROPONIN-I < 0.017 ng/mL (0.000-0.060)
[2018-11-25 21:00] VITALS: BP 75/70
[2018-11-25 21:09] LABS: APPEARANCE CLEAR (CLEAR); BILIRUBIN NEGATIVE (NEGATIVE); COLOR YELLOW (YELLOW); GLUCOSE 250 mg/dL (NEGATIVE); KETONE NEGATIVE (NEGATIVE); NITRITE POSITIVE (NEGATIVE); PROTEIN NEGATIVE (NEGATIVE); RED CELLS - URINE NONE SEEN /hpf (0-5); UROBILINOGEN NORMAL (NORMAL); WHITE CELLS - URINE OCC /hpf (0-5)
[2018-11-25 21:10] LABS: BACTERIA FEW /hpf (NONE SEEN); EPITHELIAL CELLS 0-5 /hpf (0-5)
--- NOTE | 2018-11-25 21:15 | NUR ---
PT RECEIVED TO UNIT FROM ER WITH NURSING STAFF. PT TRANSFERRED TO ICU BED. CONFUSION NOTED. IF TO LEFT FOREARM, RECEIVING NS AT 100ML/HR. PT RESPONDS TO NAME BUT DOES NOT ANSWER QUESTIONS.
--- NOTE | 2018-11-25 21:40 | NUR ---
DR MAS IN TO ASSESS PT. RECEIVED ORDERS FOR LASIX, MANNITOL AND D/C'D ATIVAN AND STARTED HALDOL PRN. KEEP HOB 30 DEGREES. PLAN IS POSSIBLE SURGURY MONDAY.
[2018-11-25 22:00] VITALS: BP 78/63
--- NOTE | 2018-11-25 22:31 | NUR ---
SPOKE WITH BLOOD BANK AND VERIFIED THAT PATIENT IS TO RECIEVE 1 UNIT OF PLATELETS. ATTEMPTED TO D/C ORDER FOR 6 UNITS, UNABLE TO DO SO. ADVISED LAB THAT PATIENT ORDER IS ONLY FOR 1 UNIT PLATELETS AND I WAS UNABLE TO REMOVE THE 6 UNIT ORDER. ALSO ADVISED ICU NURSE KATHERYN ALEXANDER THAT PATIENT IS ONLY TO RECIEVE ONE UNIT OF PLATELETS.
[2018-11-25 23:00] VITALS: BP 86/56
--- NOTE | 2018-11-25 23:50 | NUR ---
PT SPEECH CLEAR ORIENTED TO NAME ONLY. CHANGES POSITION FREQUENTLY. WILL CONTINUE TO OBSERVE.
[2018-11-26] VITALS (18 sets, daily range): BP systolic 77–129; BP diastolic 40–90; Ht 167.6 cm; Wt 79.4 kg
--- NOTE | 2018-11-26 03:30 | NUR ---
REASSESSMENT COMPLETED, SEE FLOW SHEET. WILL CONTINUE TO OBSERVE
[2018-11-26 06:30] LABS: BASOPHILS 0.1 % (0-2); EOSINOPHILS 0 % (0-7); HEMATOCRIT 37.6 % (36.0-48.0); IMMATURE GRANULOCYTES 0.1 % (0-5); LYMPHOCYTES 13.6 % (15-50); MCH 31.4 pg (26.0-34.0); MCHC 31.9 g/dL (31.0-37.0); MCV 98.4 fL (80.0-100.0); MEAN PLATELET VOLUME 11.2 fL (7.4-10.4); MONOCYTES 1.1 % (2-11); NEUTROPHILS 85.1 % (40-80); PLATELET COUNT 310 10x3/uL (130-400); RBC 3.82 10x6/uL (4.00-5.40); RDW 15.7 % (11.5-14.5)
[2018-11-26 06:36] LABS: ANION GAP 17.4 mmol/L (8-16); CARBON DIOXIDE 25.8 mmol/L (21.0-32.0); CREATININE - SERUM 1.2 mg/dL (0.6-1.3); POTASSIUM - SERUM 4.2 mmol/L (3.5-5.1)
[2018-11-26 06:53] LABS: WBC 7.9 10x3/uL (4.8-10.8)
--- NOTE | 2018-11-26 07:39 | NUR ---
[employer] IMPORT EXPORT AGENT SERVICE CALLED TO [facility] [employer] EXPORT AGENT PHYSICIAN FOR GLUCOSE OF 406 FORM LAB. ORDERS FOR SLIDING SCALE JUST ENTERED PREPARING TO CALL. POC GLUCOSE 381 WITH 16 UNITS GIVEN.
--- NOTE | 2018-11-26 07:39 | NUR ---
PT CONTINUES TO ATTEMPT TO GET OOB. BED ALARMS WORKING WELL. PT IS ABLE TO GET OOB FAST. UNABLE TO REDIRECT PT DUE TO CONFUSION. PT PULLING AT LINES WELL. BUE NONVIOLENT SOFT WRIST RESTRAINTS APPLIED.
--- NOTE | 2018-11-26 08:23 | NUR ---
pt continues to constantly get oob with soft nonviolent bue wrist restraints on and is unable to redirect. pt placed in arvin bed for protection. high fall risk and unable to redirect. pt jefferson well.
--- NOTE | 2018-11-26 17:16 | NUR ---
REPORT CALLED TO NURSING STAFF ON MED SURG.
--- NOTE | 2018-11-26 17:45 | NUR ---
RECEIVED PT FROM ICU. PT ALERT AND ORIENTED TO SELF ONLY. PT DENIES ANY PAIN. PT IS CONFUSED. PT IN KETTY BED. IV TO RIGHT FOREARM, SITE PATENT WITHOUT REDNESS OR SWELLING. NS INFUSING AT 100 ML/HR. FPT USES BS COMMODE. 1 PERSON ASSIST. REGULAR DIET. PT ADMITTED WITH RIGHT SUBDURAL HEMATOMA. NO S/S OF ACUTE DISTRESS NOTED. CALL LIGHT IN REACH. WILL CONTINUE TO MONITOR.
--- NOTE | 2018-11-26 18:30 | NUR ---
PT BECOMING AGGRESSIVE WITH STAFF, WANTING TO GO HOME. SPOKE TO DR. FRIEND WHO ORDERED 5MG GEODON Q6 PRN. GAVE PT GEODON WITH ASSISTANCE OF ANOTHER NURSE. NO S/S OF ACUTE DISTRESS. NO C/O PAIN. PT CONFUSED. CALL LIGHT IN REACH. WILL CONTINUE TO MONITOR.
--- NOTE | 2018-11-26 19:30 | NUR ---
PT SITTING UP IN ENCLOSURE BED. NO SIGNS OF DISTRESS. PT ORIENTED TO SELF ONLY. IV RIGHT FA SL. FLUSHES EASILY. DENIES ANY NEEDS AT THIS TIME. CL IN REACH, WILL CONTINUE TO MONITOR
--- NOTE | 2018-11-26 21:30 | NUR ---
PT REACHING AROUND ENCLOSURE BED TRYING TO UNZIP IT. STATING SHE WANTS OUT TO GO. ASKED PT WHERE SHE IS TRYING TO GO, PT SAYS SHE JUST HAS TO GO. ATTMEPTED TO REORIENT PT, UNSUCCESSFUL. OFFERED PT WATER AND BATHROOM, NO NEEDS. IV RIGHT FA BLEW WHEN FLUSHED. RESITED 22G IV RIGHT FA X3 ATTEMPTS. PT TOLERATED WELL. PLEASANTLY CONFUSED. STILL REACHING AROUND PULLING AT THINGS AROUND THE BED AND SAY SHE HAS TO LEAVE. CL IN REACH, WILL CONTINUE TO MONITOR
--- NOTE | 2018-11-26 21:45 | NUR ---
BS 324, INSULIN GIVEN PER SS
--- NOTE | 2018-11-26 23:20 | NUR ---
BS 352, INSULIN GIVEN PER SS
--- NOTE | 2018-11-26 23:30 | NUR ---
PT YELLING OUT INTO HALLWAY [facility]. UPON ENTERING PT ROOM, PT IS STANDING UP IN ENCLOSURE BED TRYING TO FIND ZIPPERS TO GET OUT. PT STATING SHE HAS TO GET OUT OF BED AND POINTINNG AT THINGS LIKE THE IV PUMP SAYING SHE NEEDS IT IN THE BED WITH HER. ATTEMPTING TO REDIRECT AND ORIENT PT WITHOUT SUCCESS. ORIENTED TO SELF ONLY. CONTINUES TO TRY TO GET OUT OF BED. OFFERED PT WATER AND TO GO TO BATHROOM. PT STATED SHE HAD TO VOID. ASSISTED PT W/ AID TO COMMODE. PT VOIDED AND ASSISTED BACK TO BED. NO OTHER NEEDS AT THIS TIME. CL IN REACH, WILL CONTINUE TO MONITOR
[2018-11-27] VITALS: BP 111/53
--- NOTE | 2018-11-27 01:01 | NUR ---
SITTING AT NURSES STATION WHEN PT CAME WALKING AROUND CORNER OF HALLWAY. PT SMILED AND WAVED. MYSELF AND AID IMMEDIATELY WENT TO PT SIDE AND ASSISTED HER BACK TO BED. WHEN ASKED PT HOW SHE GOT OUT OF ENCLOSURE BED, PT JUST STATED SHE HAD TO GET OUT AND TAKE A WALK. ANOTHER PATIENT WHO WAS WALKING OUTSIDE OF ROOM AT TIME STATED HE SAW HER UNZIPPING ENCLOSURE BED FROM THE TOP. ONCE PT WAS BACK IN BED, CHECKED ZIPPERS AND SNAPS TO MAKE SURE ALL WERE WORKING CORRECTLY. OFFERED PT WATER AND BATHROOM, PT STATES NO NEEDS. WILL CONTINUE TO MONITOR
--- NOTE | 2018-11-27 01:57 | NUR ---
IV RIGHT FA INFILTRATED, RED AND SWOLLEN. TENDER TO TOUCH. DC'D IV W/ CATHETER TIP INTACT. 22G IV RESITED LEFT FA X1 ATTEMPT. PT PLEASANTLY CONFUSED. ORIENTED TO SELF ONLY. STILL INSISTED SHE MUST GET OUT OF ENCLOSURE BED AND LEAVE. WHEN ASKED TO WHERE, SHE SAYS HOME. PT CONTINUES TO TRY TO FIND EXIT OUT OF ENCLOSURE BED. ATTEMPTS TO REDIRECT UNSUCCESSFUL. PT OFFERED WATER AND BATHROOM, PT DENIES NEEDS. CL IN REACH, WILL CONTINUE TO MONITOR
--- NOTE | 2018-11-27 03:57 | NUR ---
PT SITTING UP IN BED, NO SIGNS OF DISTRESS. ORIENTED TO SELF ONLY. ASKING TO GET OUT OF ENCLOSURE BED STATING SHE HAS TO GO HOME. PT IS COOPERATIVE W/ COMMANDS BUT STILL OBSERVED TRYING TO GET OUT OF THE BED. ABLE TO REDIRECT PT FOR SHORT PERIODS. PT DENIES NEED FOR WATER OR TO GO TO BATHROOM AT THIS TIME. BS 166, INSULIN GIVEN PER SS. CL IN REACH, WILL CONTINUE TO MONITOR
[2018-11-27 04:00] VITALS: BP 131/53
--- NOTE | 2018-11-27 05:57 | NUR ---
PT SITTING UP IN ENCLOSURE BED, NO SIGNS OF DISTRESS. ORIENTED TO SELF ONLY. FOLLOWING COMMANDS. CONTINUING TO LOOK FOR WAY OUT OF ENCLOSURE BED. PROVIDED PT W/ WATER TO DRINK. DENIES NEEDING TO USE BATHROOM. NO COMPLAINTS AT THIS TIME. CL IN REACH, WILL CONTINUE TO MONITOR
--- NOTE | 2018-11-27 07:00 | NUR ---
PT SITTING UP IN BED, SQUIRMING AROUND BED, CONTINUOUSLY PUSHING THE CALL LIGHT BUTTON. WHEN STAFF ENTERS ROOM TO SEE WHAT NEEDS ARE. HER SPEECH IS FLIGHTY AND RAMBLING. RESPIRATIONS ARE EVEN AND UNLABORED. NO ACUTE DISTRESS. DENIES PAIN AT THIS TIME. DENIES NEED FOR TOILETING AT THIS TIME. PT OFFERED AND CONSUMED WATER. DENIES FURTHER NEEDS AT THIS TIME. CL WITHIN REACH. WILL CONTINUE TO MONITOR CLOSELY.
--- NOTE | 2018-11-27 08:55 | NUR ---
ENTERED PT ROOM TO ANSWER CALL LIGHT. PT SITTING UP IN BED. SPEECH REMAINS RAMBLING, BUT ABLE TO VOICE NEED FOR TOILETING. ASSISTED PT X 1 ASSIST TO BR WHERE SHE WAS ABLE TO VOID. ASSISTED BACK TO BED, WATER OFFERED AND CONSUMED. DENIES PAIN OR FURTHER NEEDS AT THIS TIME. CL WITHIN REACH. WILL CONTINUE TO MONITOR
[2018-11-27 09:23] VITALS: BP 139/42
--- NOTE | 2018-11-27 10:50 | NUR ---
PT SITTING UP IN BED APPEARING TO BE WATCHING TV. REMAINS RESTLESS, TOSSING AND TURNING. NO ACUTE DISTRESS NOTED. RESP EVEN AND UNLABORED. WATER OFFERED AND CONSUMED. DENIES PAIN OR FURTHER NEEDS. CL WITHIN REACH. WILL CONTINUE TO MONITOR.
--- NOTE | 2018-11-27 11:45 | NUR ---
22 G IV STARTED TO LEFT FOREARM X 1 STICK. GOOD BLOOD RETURN, EASILY FLUSHES. TAPED INTO PLACE AND WRAPPED WITH KERLEX. NS @ 100ML/HR ATTACHED AND INFUSING VIA PUMP. PT SABIHA WELL. PT REQUEST FOR TOILETING. PT ASSISTED TO BR AND BACK TO BED. PT HAS REMOVED ALLERGY BRACELET FROM WRIST. REMAINS FIDGETY AT THIS TIME. DENIES FURTHER NEEDS AT THIS TIME. DENIES NEED FOR ORAL CONSUMPTION. CL WITHIN REACH. WILL CONTINUE TO MONITOR.
--- NOTE | 2018-11-27 13:15 | NUR ---
PT RESTING IN BED TURNING CHANNELS ON TV. PT NOT RESTLESS IN BED. IV REMAINS INTACT TO LEFT FOREARM. PT ABLE TO HOLD CONVERSATION REGARDING TV PROGRAMMING, BUT REMAINS ORIENTED TO PERSON ONLY. RESP EVEN AND UNLABORED. DENIES FURTHER NEEDS AT THIS TIME. CL WITH IN REACH. WILL CONTINUE TO MONITOR.
[2018-11-27 14:21] VITALS: BP 135/54
--- NOTE | 2018-11-27 15:00 | MORECARE ---
CASE MANAGEMENT DISCHARGE SUMMARY PATIENT: CELI SHIPMAN UNIT: [id number] ADM DATE: 11/25/18 AGE: 63 : 53 SEX: F ROOM/BED: D.2206 AUTHOR: LYSSA,DOC PHYSICIAN: REFERRING PHYSICIAN: JENNIFER FRIEND MD DATE OF SERVICE: 11/27/18 Discharge Plan Patient Name: CELI SHIPMAN Facility: [facility]:[place] : 1955 Planned Disposition: Home Anticipated Discharge Date: Discharge Date: Expected LOS: Initial Reviewer: [email or web address] Initial Review Date: 11/25/2018 Generated: 11/27/18 4:00 pm Comments DCP- Discharge Planning Updated by [email or web address]: Melisa Alan on 11/27/18 1:[address] Patient Name: CELI SHIPMAN Admission Status: ER Accout number: [id number] Admission Date: 11-25-2018 : 1955 Admission Diagnosis: Attending: JENNIFER FRIEND Current LOS: 2 Anticipated DC Date: Planned Disposition: Home Primary Insurance: MEDICARE A & B Discharge Planning Comments: CM met with patient to complete initial dc planning assessment. CM educated patient on the CM role and verbal consent given by patient to complete assessment. Patient lives at home with her mother and sister. At discharge patient plans to return there and feels this is a safe discharge. CM discussed availability of home health, rehab services, and medical equipment. Patient denied known discharge needs at this time. She states that either her mom or sister will drive her home. She is alert and oriented to place and time. She stated the president was Rickie & her family doctor was Mr Damian. She did know her birthday & moms cell phone number. At this time she states she does not need anything. CM will continue to follow and will assist as needed with dc plans/needs. Stamping Machine Operator: Melisa Alan DCPIA - Discharge Planning Initial Assessment Updated by [id number]: Melisa Alan on 11/27/18 2:55 pm * Is the patient Alert and Oriented? Yes * How many steps to enter\exit or inside your home? * PCP PATIENT STATES [facility] * Pharmacy DON'T KNOW * Preadmission Environment Home with Family * ADLs Independent * Equipment None * List name and contact numbers for known caregivers / representatives who currently or will assist patient after discharge: EVERADRO IBARRA ([facility] [place]) [phone] * Verbal permission to speak to the caregivers and representatives has been obtained from the patient. N/A * Community resources currently utilized None * Can the patient safely return to the preadmission environment? Yes * Has this patient been hospitalized within the prior 30 days at any hospital? No Patient Name: CELI SHIPMAN Page [id number] at 1500 All edits/amendments must be made on the electronic document DICTATION DATE: 11/27/18 1500 RESPIRATORY CARE PRACTITIONER: JOJO 11/27/18 1500 RPT#: [id number] DC DATE: STATUS: ADM IN [facility] [address] [place] [address] END OF REPORT
--- NOTE | 2018-11-27 15:00 | NUR ---
PT RESTING QUIETLY IN BED. NO ACUTE DISTRESS NOTED. OFFERED AND CONSUMED WATER AT THIS TIME. IV REMAINS INTACT TO LEFT FOREARM. DENIES FURTHER NEEDS AT THIS TIME. CL WITHIN REACH. WILL CONTINUE TO MONITOR.
--- NOTE | 2018-11-27 16:55 | NUR ---
PT RESTING QUIETLY IN BED, WATCHING TV. NO ACUTE DISTRESS NOTED. REMAINS ORIENTED TO PERSON ONLY. LIMITED CONVERSATION WITH STAFF. IV REMAINS INTACT TO LEFT FOREARM. WATER CONSUMED AT THIS TIME. DENIES NEEDS FOR TOILETING AT THIS TIME. DENIES FURTHER NEEDS AT THIS TIME. CL WITHIN REACH. WILL CONTINUE TO MONITOR.
[2018-11-27 17:18] VITALS: BP 148/73
--- NOTE | 2018-11-27 18:55 | NUR ---
PT SITTING UP IN BED, NO SIGNS OF DISTRESS. ORIENTED TO SELF. CAN STATE SHE IS IN HOSPITAL BUT DOES NOT KNOW WHERE OR WHY. IV LEFT FA WRAPPED IN KERLEX INFUSING NS @ 100. PT DENIES NEED FOR WATER OR TOILETING AT THIS TIME. NO COMPLAINTS VOICED. CL IN REACH, WILL CONTINUE TO MONITOR
[2018-11-27 20:00] VITALS: BP 142/67
--- NOTE | 2018-11-27 20:40 | NUR ---
PT YELLING OUT HELP ME INTO HALLWAY. WENT INTO ROOM SEVERAL TIMES TO CHECK PATIENT, SITTING UP IN ENCLOSURE BED W/O DISTRESS. WHEN ASKED WHAT SHE NEEDS HELP WITH PT STATES SHE NEEDS TO ENCLOSURE BED NETTING TO BE UNZIPPED. EDUCATED PT ON IMPORTANCE OF ENCLOSURE BED TO KEEP HER SAFE. PT INSISTS SHE NEEDS IT LEFT UNZIPPED BECAUSE SHE HAS SOMEWHERE TO GO. WHEN ASKED WHERE SHE IS TRYING TO GO, PATIENT STATES SHE CANNOT REMEMBER. ATTEMPTS TO REORIENT PT UNSUCCESSFUL. SHE KNOWS SELF AND THAT SHE IS IN A HOSPITAL BUT NOT WHERE OR WHY. OFFERED PT WATER AND TOILETING, PT DENIES NEED FOR BOTH. WITHIN MINUTES OF LEAVING ROOM PT BACK TO YELLING HELP INTO HALLWAY, UPON ENTERING ROOM AGAIN, PT DOES NOT REMEMBER THE CONVERSATION WE HAD JUST PREVIOUSLY HAD. ATTMPTED TO REORIENT AND REDIRECT SEVERAL TIMES, UNSUCCESSFUL. PT CONTINUES TO DENY NEEDS OTHER THAN STATING SHE HAS TO LEAVE. WILL CONTINUE TO MONITOR, CL IN REACH
--- NOTE | 2018-11-27 22:10 | NUR ---
PT SITTING UP IN ENCLOSURE BED W/O DISTRESS. PT HAS CALMED DOWN SIGNIFICANTLY FROM EARLIER. ASSISTED PT UP TO BATHROOM AND BACK TO BED. DENIES NEED FOR DRINK OR SNACK. MEDS GIVEN W/O DIFFICULTY. CHANGED PT LINENS. ENCLOSURE BED ZIPPED AND SNAPPED SHUT. VOICED NO COMPLAINTS AT THIS TIME. CL IN REACH, WILL CONTINUE TO MONITOR
--- NOTE | 2018-11-27 22:50 | NUR ---
PT SITTING UP IN ENCLOSURE BED W/O DISTRESS. UPON ENTERING ROOM, PT HAS DISCONNECTED HER IV AND LEFT IT LAYING IN THE FLOOR RUNNING. STOPPED PUMP AND ASSISTED PT UP TO BATHROOM AND BACK TO BED. PT DENIES NEED FOR WATER. STATES NO COMPLAINTS. RECONNECTED IV, INFUSING NS @ 100. CL IN REACH, WILL CONTINUE TO MONITOR
[2018-11-28] VITALS: BP 118/52
--- NOTE | 2018-11-28 00:40 | NUR ---
PT LYING IN BED RESTING W/ EYES CLOSED. AWAKENS TO VERBAL STIMULI. BS 266, GIVEN INSULIN PER SS. PT DENIES NEED FOR WATER. ASSISTED PT TO BATHROOM AND BACK TO ENCLOSURE BED. NO OTHER NEEDS VOICED. CL IN REACH, WILL CONTINUE TO MONITOR
--- NOTE | 2018-11-28 02:40 | NUR ---
PT LYING IN ENCLOSURE BED RESTING W/ EYES CLOSED. IV LEFT FA INFUSING NS @ 100. IV LINE WAS TANGLED AROUND PT LEGS AND WAIST PULLED TIGHT. UNTANGLED PT FROM LINE. PT STATES NO NEED FOR WATER OR TOILETING. CL IN REACH, WILL CONTINUE TO MONITOR
[2018-11-28 04:00] VITALS: BP 125/62
--- NOTE | 2018-11-28 04:00 | NUR ---
PT SITTING UP IN BED W/ IV PUMP ALARMING. UPON ENTERING ROOM PT WAS HOLDING UP DC'D IV. ASKED PT WHAT HAPPENED, STATES SHE DOES NOT KNOW. ASKED PT IF SHE PULLED IT OUT, STATES YES. WHEN TELLING PT I WOULD HAVE TO START A NEW IV, PT STATES SHE IS NOT GOING TO BE STUCK AGAIN. I TOLD PT THAT IS HOW SHE GETS HER MEDICINE. PT STATES SHE DOES NOT CARE, SHE DOES NOT WANT TO BE STUCK FOR AN IV AGAIN. WILL ATTEMPT AGAIN LATER. PT IS STILL ONLY ORIENTED TO SELF. DENIES NEED FOR WATER OR TOILETING. CL IN REACH, WILL CONTINUE TO MONITOR
--- NOTE | 2018-11-28 04:20 | NUR ---
PT TRIED TO CLIMB OUT OF ENCLOSURE BED WHEN LAB ENTERED ROOM AND STARTED UNZIPPING BED. PHLEBO CALLED THIS NURSE TO ROOM. PT STATED SHE WANTED TO GET OUT OF THERE NOW. TOLD PT SHE COULD NOT GET OUT OF BED, PT STATED SHE HAD TO LEAVE BUT WOULD NOT STATE WHERE TO. WAS ABLE TO REDIRECT PT. LAB WAS ABLE TO OBTAIN BLOOD. PT STILL REFUSING HOWEVER TO HAVE IV PLACED. DENIES NEEDS FOR WATER OR TOILETING. WHEN EDUCATING PT ON REASON FOR BED PT STATES SHE UNDERSTANDS. CL IN REACH, WILL CONTINUE TO MONITOR
[2018-11-28 05:07] LABS: BASOPHILS 0 % (0-2); EOSINOPHILS 0 % (0-7); HEMATOCRIT 39.5 % (36.0-48.0); HEMOGLOBIN 12.7 g/dL (12-16); IMMATURE GRANULOCYTES 0.3 % (0-5); LYMPHOCYTES 17.2 % (15-50); MCH 31.1 pg (26.0-34.0); MCHC 32.2 g/dL (31.0-37.0); MCV 96.8 fL (80.0-100.0); MONOCYTES 5.6 % (2-11); NEUTROPHILS 76.9 % (40-80); PLATELET COUNT 359 10x3/uL (130-400); RBC 4.08 10x6/uL (4.00-5.40); RDW 15.1 % (11.5-14.5)
[2018-11-28 05:23] LABS: WBC 13.3 10x3/uL (4.8-10.8)
[2018-11-28 05:24] LABS: ANION GAP 17.6 mmol/L (8-16); CALCIUM 9.4 mg/dL (8.5-10.1); CARBON DIOXIDE 26.6 mmol/L (21.0-32.0); CREATININE - SERUM 1.1 mg/dL (0.6-1.3)
[2018-11-28 05:36] LABS: POTASSIUM - SERUM 3.2 mmol/L (3.5-5.1)
--- NOTE | 2018-11-28 06:15 | NUR ---
PT SITTING UP IN BED, NO SIGNS OF DISTRESS. PT ORIENTED TO SELF ONLY. CAN TELL ME SHE IS IN A HOSPITAL BUT DOES NOT KNOW WHERE OR WHY. PT IS PLEASANT AND COOPERATIVE AT THIS TIME EXCEPT FOR CONTINUING TO REFUSE TO HAVE IV PLACED. EXPLAINED THE IMPORTANCE TO PT MULTIPLE TIMES, SAYS SHE DOES NOT WANT TO BE STUCK BUT IS WILLING TO HAVE BLOOD SUGAR CHECKED. PT DENIES NEED FOR WATER OR TOILETING AT THIS TIME. CL IN REACH,WILL CONTINUE TO MONITOR
--- NOTE | 2018-11-28 07:30 | NUR ---
REC'D IN WALKING ROUND IN KETTY BED AWAKE AND ALERT TO SELF ONLY. RESP EVEN AND UNLABORED WITH NO DISTRESS NOTED. PT HAS NO IV ACCESS ON THIS AM D/T PULLING IV OUT AND REFUSING FOR NURSES TO RESTART WILL TRAY AGAIN LATER. ASSESSMENT COMPLETED. C/L IN REACH AT BEDSIDE.
--- NOTE | 2018-11-28 07:33 | NUR ---
PATIENT SITTING UP IN NET BED AT THIS TIME. EYES OPEN WITH NO COMPLAINTS OR SIGNS OF DISTRESS. DENIES ANY NEEDS AT THIS TIME. CALL LIGHT WITHIN REACH.
[2018-11-28 08:00] VITALS: BP 138/63
--- NOTE | 2018-11-28 08:52 | NUR ---
PATIENT REFUSING TO WEAR TELEMETRY AT THIS TIME. WILL NOT LEAVE ON.
--- NOTE | 2018-11-28 09:00 | NUR ---
refused meds and to be restick at this time. this nurse willtry again later. c/l in reach at bedside.
--- NOTE | 2018-11-28 11:20 | NUR ---
PATIENT IV STARTED IN LEFT WRIST X 3 STICKS. 20 G. TOLERATED WITH SMALL AMOUNT OF PAIN. NET BED OPEN. LAB AT BEDSIDE. CALL LIGHT WITHIN REACH.
--- NOTE | 2018-11-28 12:00 | NUR ---
pt started c/o ofiv burning and sting and was red stop levaquin at this time ,pt was scratching iv site. informed Dr. Bhat and he said thathe was going to access her. c/l in reach at bedside.
[2018-11-28 13:25] VITALS: BP 113/51
[2018-11-28 16:30] VITALS: BP 142/60
[2018-11-28 20:41] VITALS: BP 134/55
--- NOTE | 2018-11-28 20:51 | NUR ---
CONFUSED YELLING OUT PT IN KETTY NET BED ALL SIDES ZIPPED AND LOCKED.CALL LIGHT WITHIN REACH.
[2018-11-29 00:33] VITALS: BP 132/46
[2018-11-29 05:33] LABS: BASOPHILS 0 % (0-2); EOSINOPHILS 0 % (0-7); HEMATOCRIT 41.4 % (36.0-48.0); HEMOGLOBIN 13.4 g/dL (12-16); IMMATURE GRANULOCYTES 0.3 % (0-5); LYMPHOCYTES 19.3 % (15-50); MCH 31.2 pg (26.0-34.0); MCHC 32.4 g/dL (31.0-37.0); MCV 96.3 fL (80.0-100.0); MEAN PLATELET VOLUME 11.1 fL (7.4-10.4); MONOCYTES 5.4 % (2-11); PLATELET COUNT 364 10x3/uL (130-400); RDW 15.1 % (11.5-14.5); WBC 13.3 10x3/uL (4.8-10.8)
[2018-11-29 05:52] VITALS: BP 105/55
[2018-11-29 05:55] LABS: ANION GAP 16.7 mmol/L (8-16); CALCIUM 9.6 mg/dL (8.5-10.1); CARBON DIOXIDE 26.9 mmol/L (21.0-32.0); CREATININE - SERUM 1.3 mg/dL (0.6-1.3); POTASSIUM - SERUM 3.6 mmol/L (3.5-5.1)
--- NOTE | 2018-11-29 08:22 | NUR ---
AWAKE AND ALERT. ORIENTED TO SELF AND PLACE. SHORT TERM MEMORY IS VERY POOR. UNABLE TO RECALL NAME OF STAFF MEMBER AT 2 MINUTES. LUNGS ARE CLEAR BILATERALLY, NO COUGH NOTED. SKIN IS INTACT WITHOUT REDNESS EXCEPT ABRASION NOTED TO LEFT BUTTOCK. PATIENT STATED SHE SCRATCHED HERSELF. WILL MONITOR. IV TO LEFT FOREARM IS PATENT WITHOUT REDNESS AT INSERTION SITE. NO NEEDS ASSESSED. IN ENCLOSURE BED FOR SAFETY.
[2018-11-29 09:04] VITALS: BP 124/50
--- NOTE | 2018-11-29 10:40 | NUR ---
NUTRITION F/U PT REMAINS IN BEDNET. CONTROL SYSTEMS DEVELOPER REPORTS PT TOLERATING REG DIET WITH ~50% INTAKE MOST MEALS. WILL CONTINUE TO PROVIDE DIET, MONITOR PO INTAKE. RD FOLLOWING
--- NOTE | 2018-11-29 11:45 | NUR ---
IV TO LEFT FOREARM LEAKING. D/C WITH CATHETER INTACT. RESITED TO RIGHT FOREARM AFTER ONE ATTEMPT WITH 20G. TOLERATED WITHOUT C/O. DENIES NEEDS.
--- NOTE | 2018-11-29 11:55 | NUR ---
REQUESTED AND GIVEN 650 MG TYLENOL PO FOR C/O HEADACHE. WILL MONITOR.
--- NOTE | 2018-11-29 13:29 | NUR ---
ATE ONLY A FEW BITES OF LUNCH. REFUSED MORE AND OFFER OF ALTERNATIVE FOODS. WILL MONITOR.
[2018-11-29 16:56] VITALS: BP 119/54
--- NOTE | 2018-11-29 17:15 | NUR ---
PATIENT FOUND NAKED WITH IV PULLED OUT CATHETER INTACT. CLEANED UP PER STAFF. AMBULATED TO WITH ONE PERSON MIN ASSIST. VOIDED WITHOUT DIFFICULTY. IV RESITED TO RIGHT FOREARM AFTER 3 ATTEMPTS WITH 20G. PATIENT ENCOURAGED TO NOT PULL ON IT. WILL MONITOR.
[2018-11-29 20:00] VITALS: BP 137/63
[2018-11-30] VITALS (10 sets, daily range): BP systolic 104–136; BP diastolic 45–62
[2018-11-30 04:38] LABS: BASOPHILS 0 % (0-2); EOSINOPHILS 0 % (0-7); HEMATOCRIT 39.1 % (36.0-48.0); HEMOGLOBIN 13.1 g/dL (12-16); IMMATURE GRANULOCYTES 0.3 % (0-5); LYMPHOCYTES 25.3 % (15-50); MCH 31.6 pg (26.0-34.0); MCHC 33.5 g/dL (31.0-37.0); MCV 94.4 fL (80.0-100.0); MEAN PLATELET VOLUME 10.7 fL (7.4-10.4); MONOCYTES 7.4 % (2-11); PLATELET COUNT 312 10x3/uL (130-400); RBC 4.14 10x6/uL (4.00-5.40); RDW 14.7 % (11.5-14.5)
[2018-11-30 04:44] LABS: CALCIUM 9.5 mg/dL (8.5-10.1); CARBON DIOXIDE 26.4 mmol/L (21.0-32.0); CREATININE - SERUM 1.2 mg/dL (0.6-1.3); POTASSIUM - SERUM 3.4 mmol/L (3.5-5.1)
--- NOTE | 2018-11-30 07:45 | NUR ---
AWAKE AND ALERT. RESPONDS APPROPRIATELY TO YES NO QUESTIONS. LUNGS ARE CLEAR BILATERALLY, NO COUGH NOTED. SKIN IS INTACT WITHOUT REDNESS EXCEPT SMALL ABRASION TO LEFT BUTTOCK. WILL MONITOR. SL TO RIGHT HAND IS PATENT WITHOUT REDNESS AT INSERTION SITE. DISCUSSED SURGERY WITH PATIENT AND SHE IS AGREEABLE TO GO AT THIS TIME. DENIES NEEDS.
--- NOTE | 2018-11-30 08:00 | NUR ---
DR. MAS HERE AND DISCUSSED SURGERY WITH PATIENT AND HER MOTHER. THEY ARE AGREEABLE TO THE SURGERY. CONSENTS OBTAINED.
--- NOTE | 2018-11-30 08:20 | NUR ---
OFF UNIT VIA BED FOR SURGERY.
--- NOTE | 2018-11-30 09:12 | NUR ---
0912: 1 HOUR DELAY BRING THE PATIENT IN THE ROOM BECAUSE SHE REFUSED TO SIGN CONCENTS
--- NOTE | 2018-11-30 10:46 | NUR ---
RETURNED FROM SURGERY. FAMILY AT BEDSIDE. A/O X3.
--- NOTE | 2018-11-30 13:09 | NUR ---
BARNES D/C WITH TIP INTACT WITHOUT DIFFICULTY. UP TO BR WITH MIN ASSIST OF ONE. UP TO CHAIR AT BEDSIDE FOR LUNCH. WILL MONITOR.
--- NOTE | 2018-11-30 14:10 | NUR ---
ATE ABOUT 25% OF LUNCH PLUS A SHERBERT. AMBULATED 250 FEET WITHOUT DIFFICULTY SBA. POSITIONED IN BED FOR COMFORT. DENIES NEEDS.
--- NOTE | 2018-11-30 18:36 | NUR ---
HAS BEEN TEARFUL THIS AFTERNOON. WANTS TO GO HOME. TALKED TO MOM ON PHONE. REFUSED TO EAT ANY SUPPER. NO CHANGES NOTED. DENIES NEEDS.
--- NOTE | 2018-11-30 18:55 | NUR ---
UP TO BR WITH ONE PERSON ASSIST. VOIDED WITHOUT DIFFICULTY. FSBS 293
--- NOTE | 2018-11-30 20:00 | NUR ---
ASSISTED PT TO BATHROOM. GAIT STEADY, ALERT AND ORIENTED X 3, REORIENTED TO SITUATION. DENIES PAIN AT THIS TIME. REQUESTS TO WALK AROUND. TOLD PT AFTER I MET WITH THE REST OF MY PTS AND GAVE THEM NIGHTLY MEDS, WE COULD GO FOR A WALK IN THE [place]. PT AGREED. WILL CONTINUE TO MONITOR.
--- NOTE | 2018-11-30 22:00 | NUR ---
SUPINE IN BED. NON-SKID SOCKS APPLIED. ASSISTED TO RESTROOM. PT STOOD UP. STANCE IS STEADY. STEADY GAIT. WALKED ONE LAP AROUND UNIT WITH PT, STAND-BY ASSIST. PT AMBULATED INDEPENDENTLY WITHOUT ASSISTANCE. BROUGHT TO ROOM.
[2018-12-01] VITALS: BP 116/46
--- NOTE | 2018-12-01 | NUR ---
SUPINE IN BED, DENIES PAIN, ASSISTED TO RESTROOM. DENIES FURTHER NEEDS AT THIS TIME. STATES SHE IS REALLY TIRED. WILL CONTINUE TO MONITOR.
--- NOTE | 2018-12-01 02:00 | NUR ---
SUPINE IN BED, WATER GIVEN REQUESTED. STOOD UP TO STRETCH, SAT BACK DOWN AND TURNED OVER TO SLEEP.
[2018-12-01 04:00] VITALS: BP 89/43
--- NOTE | 2018-12-01 04:00 | NUR ---
PT LAYING IN BED, REQUEST FSBS TO NOT BE TAKEN OR BE TAKEN IN A LITTLE WHILE BECAUSE SHE'S BEEN "SLEEPIN GOOD AND I WANNA FINISH." TOLD PT I CAN GIVE HER A LITTLE LONGER, BUT I CAN'T SKIP IT. PT SAID OKAY, CLOSED EYES AND TURNED OVER.
[2018-12-01 05:41] LABS: BASOPHILS 0 % (0-2); EOSINOPHILS 0 % (0-7); HEMATOCRIT 38.2 % (36.0-48.0); HEMOGLOBIN 12.5 g/dL (12-16); IMMATURE GRANULOCYTES 0.3 % (0-5); MCH 31.2 pg (26.0-34.0); MCHC 32.7 g/dL (31.0-37.0); MCV 95.3 fL (80.0-100.0); MEAN PLATELET VOLUME 11.4 fL (7.4-10.4); MONOCYTES 5.2 % (2-11); NEUTROPHILS 76.5 % (40-80); PLATELET COUNT 279 10x3/uL (130-400); RBC 4.01 10x6/uL (4.00-5.40); RDW 14.9 % (11.5-14.5); WBC 11.5 10x3/uL (4.8-10.8)
--- NOTE | 2018-12-01 06:00 | NUR ---
SPONTANEOUS EYE OPENING UPON VERBAL STIMULATION. PT HOOKED BACK UP TO FLUIDS, DENIES NEEDS AT THIS TIME. WILL CONTINUE TO MONITOR.
--- NOTE | 2018-12-01 06:00 | NUR ---
I have reviewed this patient and I concur with the Shift Assessment completed by the Licensed Practical Nurse today this shift.
[2018-12-01 06:14] LABS: ANION GAP 14.9 mmol/L (8-16); CARBON DIOXIDE 27.7 mmol/L (21.0-32.0); POTASSIUM - SERUM 3.6 mmol/L (3.5-5.1)
--- NOTE | 2018-12-01 08:12 | NUR ---
PT RESTING WITH EYES CLOSED WITH RESPIRATIONS EVEN AND CTA. IVF INFUSING AT PRESCRIBED RATE. GOOD ROM OF EXT. NO DISTRESS NOED.CALL LIGHT IN REACH.
[2018-12-01 08:22] VITALS: BP 128/69
[2018-12-01 13:59] VITALS: BP 136/52
[2018-12-01 17:13] VITALS: BP 119/37
--- NOTE | 2018-12-01 17:57 | MORECARE ---
CASE MANAGEMENT DISCHARGE SUMMARY PATIENT: CELI SHIPMAN UNIT: [id number] ADM DATE: 11/25/18 AGE: 63 : 53 SEX: F ROOM/BED: D.2218 AUTHOR: LYSSA,DOC PHYSICIAN: REFERRING PHYSICIAN: JENNIFER FRIEND MD DATE OF SERVICE: 12/01/18 Discharge Plan Patient Name: CELI SHIPMAN Facility: [facility]:[place] : 1955 Planned Disposition: Home Anticipated Discharge Date: Discharge Date: Expected LOS: Initial Reviewer: [email or web address] Initial Review Date: 11/25/2018 Generated: 12/01/18 6:56 pm Comments DCP- Discharge Planning Updated by [email or web address]: Yenni Laura on 12/01/18 4:[address] LATE ENTRY 1245 CM RECEIVED A CONSULT REGARDING APPROPRIATENESS FOR KIM PSYCH. SHE IS DAY 1 POST SUNI HOLES. NS SURGERY FOLLOWUP ?? SHE HAS BEEN ON DECADRON 8 MGM IV Q6H SINCE 11/25. SHE REMAINS ON LASIX 40 MGM Q12H. HER BLOOD GLUCOSE LEVELS ARE ELEVATED. NO PHYSICAL THERAPY YET. QUESTION OT EVAL. PSYCH CONSULT CAN BE ORDERED FOR RECOMMENDATIONS. DOES NOT APPEAR SHE WOULD BE CONSIDERED MEDICALLY STABLE FOR THAT SITE OF CARE. CM TO FOLLOW FOR DISCHARGE PLANNING. DCP- Discharge Planning Updated by [id number]: Melisa Dayanna on 11/27/18 1:[address] Patient Name: CELI SHIPMAN Admission Status: ER Accout number: [id number] Admission Date: 11-25-2018 : 1955 Admission Diagnosis: Attending: JENNIFER FRIEND Current LOS: 2 Anticipated DC Date: Planned Disposition: Home Primary Insurance: MEDICARE A & B Discharge Planning Comments: CM met with patient to complete initial dc planning assessment. CM educated patient on the CM role and verbal consent given by patient to complete assessment. Patient lives at home with her mother and sister. At discharge patient plans to return there and feels this is a safe discharge. CM discussed availability of home health, rehab services, and medical equipment. Patient denied known discharge needs at this time. She states that either her mom or sister will drive her home. She is alert and oriented to place and time. She stated the president was Rickie & her family doctor was Mr Damian. She did know her birthday & moms cell phone number. At this time she states she does not need anything. CM will continue to follow and will assist as needed with dc plans/needs. Wedding Coordinator: Melisa Alan DCPIA - Discharge Planning Initial Assessment Updated by [id number]: Meilsa Alan on 11/27/18 2:55 pm * Is the patient Alert and Oriented? Yes * How many steps to enter\exit or inside your home? * PCP PATIENT STATES [facility] * Pharmacy DON'T KNOW * Preadmission Environment Home with Family * ADLs Independent * Equipment None * List name and contact numbers for known caregivers / representatives who currently or will assist patient after discharge: EVERARDO IBARRA (MOM) [phone] * Verbal permission to speak to the caregivers and representatives has been obtained from the patient. N/A * Community resources currently utilized None * Can the patient safely return to the preadmission environment? Yes * Has this patient been hospitalized within the prior 30 days at any hospital? No Last DP export: 11/27/18 2:00 p Patient Name: CELI SHIPMAN Page [id number] at 1757 All edits/amendments must be made on the electronic document DICTATION DATE: 12/01/181755 TICKET COUNTER: JOJO 12/01/181755 RPT#: [id number] DC DATE: STATUS: ADM IN [facility] [address] [place] [address] END OF REPORT
[2018-12-01 19:54] VITALS: BP 124/68
--- NOTE | 2018-12-01 20:00 | NUR ---
PT YELLING OUT THAT SHE HAS TO PEE OVER AND OVER IN PAST HOUR...DESPITE BEING TAKEN TO VOID SEVERAL TIMES. WILL CONTINUE TO MONITOR FOR NEEDS.
[2018-12-02] VITALS: BP 139/59
--- NOTE | 2018-12-02 00:10 | NUR ---
FSBS 155 REQUIRING COVERAGE WITH 4 UNITS OF INSULIN PER SLIDING SCALE.
--- NOTE | 2018-12-02 03:29 | NUR ---
FSBS 194 REQUIRING COVERAGE WITH 4 UNITS OF INSULIN PER SLIDING SCALE.
[2018-12-02 03:58] VITALS: BP 123/62
[2018-12-02 06:47] LABS: ANION GAP 15.1 mmol/L (8-16); CALCIUM 9.1 mg/dL (8.5-10.1); CARBON DIOXIDE 25.1 mmol/L (21.0-32.0); CREATININE - SERUM 0.9 mg/dL (0.6-1.3)
[2018-12-02 06:49] LABS: POTASSIUM - SERUM 4.2 mmol/L (3.5-5.1)
[2018-12-02 07:21] LABS: BASOPHILS 0 % (0-2); EOSINOPHILS 0 % (0-7); HEMATOCRIT 40.3 % (36.0-48.0); HEMOGLOBIN 13.1 g/dL (12-16); IMMATURE GRANULOCYTES 0.3 % (0-5); LYMPHOCYTES 15.6 % (15-50); MCHC 32.5 g/dL (31.0-37.0); MCV 95.3 fL (80.0-100.0); MEAN PLATELET VOLUME 11.4 fL (7.4-10.4); MONOCYTES 3.7 % (2-11); NEUTROPHILS 80.4 % (40-80); PLATELET COUNT 255 10x3/uL (130-400); RBC 4.23 10x6/uL (4.00-5.40); RDW 14.8 % (11.5-14.5); WBC 13.3 10x3/uL (4.8-10.8)
--- NOTE | 2018-12-02 07:30 | NUR ---
PT RESTING EYES CLOSED NO SIGNS OF DISTRESS NOTED, CL IN REACH WILL CONTINUE TO MONITOR
[2018-12-02 08:42] VITALS: BP 135/48
[2018-12-02 11:24] LABS: APPEARANCE CLEAR (CLEAR); BILIRUBIN NEGATIVE (NEGATIVE); COLOR YELLOW (YELLOW); GLUCOSE NEGATIVE (NEGATIVE); KETONE NEGATIVE (NEGATIVE); NITRITE NEGATIVE (NEGATIVE); PROTEIN TRACE mg/dL (NEGATIVE); UROBILINOGEN NORMAL (NORMAL)
[2018-12-02 11:25] LABS: BACTERIA FEW /hpf (NONE SEEN); EPITHELIAL CELLS 0-5 /hpf (0-5); WHITE CELLS - URINE 0-5 /hpf (0-5)
[2018-12-02 13:07] VITALS: BP 144/63
[2018-12-02 18:17] VITALS: BP 116/44
--- NOTE | 2018-12-02 19:00 | NUR ---
REPORT RECEIVED AND CARE OF PT ASSUMED. PT SITTING UP IN ENCLOSURE BED WATCHING TV. NO IV AT THIS TIME. WILL MONITOR FOR NEED.S
--- NOTE | 2018-12-02 19:34 | NUR ---
I have reviewed this patient and I concur with the Shift Assessment completed by the Licensed Practical Nurse today this shift.
--- NOTE | 2018-12-02 20:40 | NUR ---
RE-SITED IV TO LEFT WRIST USING 22 GUAGE CATHETER. SALINE LOCKED.
--- NOTE | 2018-12-02 20:44 | NUR ---
HS MEDCATIONS GIVEN TO INCLUDE IVP ZOFRAN FOR NAUSEA. WILL MONITOR FOR EFFECTIVENSS. PT REMAINS IN ENCLOSURE BED FOR SAFETY.
[2018-12-02 21:04] VITALS: BP 135/54
[2018-12-03 00:11] VITALS: BP 115/43
--- NOTE | 2018-12-03 00:30 | NUR ---
PT RESTING ON RIGHT SIDE WITH EYES CLOSED AND EASY RESPIRATIONS. WILL CONTINUE TO MONITOR FOR NEEDS. PT REMAINS IN ENCLOSURE BED.
--- NOTE | 2018-12-03 03:32 | NUR ---
FSBS 136 THIS CHECK REQUIRING NO COVERAGE PER SLIDING SCALE.
[2018-12-03 04:36] VITALS: BP 117/35
[2018-12-03 05:41] LABS: BASOPHILS 0.1 % (0-2); EOSINOPHILS 0.3 % (0-7); HEMATOCRIT 39.5 % (36.0-48.0); HEMOGLOBIN 12.8 g/dL (12-16); IMMATURE GRANULOCYTES 0.5 % (0-5); LYMPHOCYTES 39.2 % (15-50); MCHC 32.4 g/dL (31.0-37.0); MCV 95.6 fL (80.0-100.0); MEAN PLATELET VOLUME 11.5 fL (7.4-10.4); NEUTROPHILS 51.9 % (40-80); PLATELET COUNT 232 10x3/uL (130-400); RBC 4.13 10x6/uL (4.00-5.40); RDW 14.8 % (11.5-14.5); WBC 13.1 10x3/uL (4.8-10.8)
[2018-12-03 06:38] LABS: ANION GAP 12.1 mmol/L (8-16); CALCIUM 9.4 mg/dL (8.5-10.1); CARBON DIOXIDE 31.3 mmol/L (21.0-32.0)
[2018-12-03 06:40] LABS: POTASSIUM - SERUM 3.4 mmol/L (3.5-5.1)
--- NOTE | 2018-12-03 09:00 | NUR ---
ASSSITED PT OUT OF KETTY BED TO RESTROOM, SAT PT IN CHAIR AT BEDSIDE SO SHE MAY EAT BREAKFAST, ADMINISTERED MEDS PER MAR, PT IS ALERT AND ORIENTED, NO NEEDS VOICED, WILL CONTINUE WITH PLAN OF CARE AND ALLOW PT TO SIT UP THROUGH BREAKFAST
--- NOTE | 2018-12-03 09:06 | NUR ---
PT REQUESTED PRN NAUSEA MEDS, WHEN I WENT TO PUSH LAST OF IV MEDS PT STATED IV SITE HURTS, SITE IS RED, WILL ORDER PRN ODT FOR NAUSEA
--- NOTE | 2018-12-03 11:12 | NUR ---
PT IS SITTING UP IN BED WITH SIDE OF KETTY DOWN SO SHE CAN HANG HER LEGS, PT STATED SHE IS BORED. NO NEEDS VOICED, CONTINUE WITH PLAN OF CARE
--- NOTE | 2018-12-03 11:29 | NUR ---
Rehab Note- Acute Inpatient Rehab prescreen order received. Reviewed the patient's medical receord at this time and is noted to be in a arvin enclosed bed and not participating in therapy. The patient would have to be rehab appropriate and able to participate in the required 3hrs/day of therapy per Medicare guidelines. Will follow at this time. Thank you for this referral! Graciela Stevenson RN CLinical Liaison, [facility] Rehab
[2018-12-03 12:46] VITALS: BP 115/73
--- NOTE | 2018-12-03 14:00 | NUR ---
I have reviewed this patient and I concur with the Shift Assessment completed by the Licensed Practical Nurse today this shift.
--- NOTE | 2018-12-03 14:32 | NUR ---
I have reviewed this patient and I concur with the Shift Assessment completed by the Licensed Practical Nurse today this shift.
[2018-12-03 16:47] VITALS: BP 124/58
[2018-12-03 22:13] VITALS: BP 101/59
[2018-12-04 01:27] VITALS: BP 104/30
[2018-12-04 05:18] VITALS: BP 101/24
[2018-12-04 05:56] LABS: BASOPHILS 0.1 % (0-2); EOSINOPHILS 0.8 % (0-7); HEMATOCRIT 40.5 % (36.0-48.0); HEMOGLOBIN 12.9 g/dL (12-16); IMMATURE GRANULOCYTES 0.5 % (0-5); LYMPHOCYTES 37.6 % (15-50); MCH 30.7 pg (26.0-34.0); MCHC 31.9 g/dL (31.0-37.0); MCV 96.4 fL (80.0-100.0); MEAN PLATELET VOLUME 11.5 fL (7.4-10.4); MONOCYTES 6.5 % (2-11); NEUTROPHILS 54.5 % (40-80); PLATELET COUNT 201 10x3/uL (130-400); RDW 14.9 % (11.5-14.5); WBC 12.2 10x3/uL (4.8-10.8)
[2018-12-04 06:11] LABS: ANION GAP 12.4 mmol/L (8-16); CALCIUM 9.2 mg/dL (8.5-10.1); CARBON DIOXIDE 28.6 mmol/L (21.0-32.0); CREATININE - SERUM 0.9 mg/dL (0.6-1.3)
--- NOTE | 2018-12-04 08:05 | NUR ---
PT ASKED TO BE LET OUT OF KETTY TO USE RESTROOM, PT STATED SHE IS BORED AND WANTED TO GO WALK, HAD NURSING STUDENTS WALK PT AROUND STATION, PT STATED SHE IS TIRED AND NEEDS TO SIT, PT BACK IN ROOM SITTING UP IN CHAIR
[2018-12-04 09:17] VITALS: BP 119/41
[2018-12-04 12:45] VITALS: BP 109/56
--- NOTE | 2018-12-04 13:29 | NUR ---
PT FAMILY CAME TO NURSING STATION STATED PT HAS HEADACHE, ASKED PT PAIN LEVEL STATED HEADACHE IS AT 7, ADMINISTERED PRN PAIN MEDICATION
--- NOTE | 2018-12-04 14:46 | NUR ---
OT NOTE: BED MOB ( WITHIN KETTY BED ) WITH SPV; AMB IN HALLWAY GREATER THAN 175 FT WITH CGA. SIMPLE GROOMING WITH SET UP. LE DRESSING WITH SET UP CHEPE RECINOS OTR/L
[2018-12-04 17:17] VITALS: BP 107/58
--- NOTE | 2018-12-04 19:29 | NUR ---
I have reviewed this patient and I concur with the Shift Assessment completed by the Licensed Practical Nurse today this shift.
--- NOTE | 2018-12-04 20:00 | NUR ---
ASSESSMENT PER FLOWSHEET. SITTING OUT IN HALLWAY IN CHAIR. ALERT ORIENTED. DENIES NEEDS.
--- NOTE | 2018-12-04 21:07 | NUR ---
OT NOTE: PT COMPLETED BED MOB WITH SPV, PT COMPLETED ADL MOB WITH CGA. PT COMPLETED HGYIENE AND GROOMING TASKS WITH SET UP. THANK YOU, GEO DIAZ
--- NOTE | 2018-12-04 22:00 | NUR ---
MEDS GIVEN [ER MAR.NMDU=684. NO COVERAGE GIVEN PER S/S SCALE. UNABLE TO GIVE PEPCID PATIENT HAS NO IV AND DOESN'T WANT IT BACK IN.
--- NOTE | 2018-12-04 23:48 | NUR ---
EYES CLOSED RESPIRATIONS WITH EASE AND UNLABORED. PT ON KETTY MAT WITH ALARMS SET.
[2018-12-05 00:13] VITALS: BP 188/30
[2018-12-05 06:10] LABS: BASOPHILS 0 % (0-2); EOSINOPHILS 1.1 % (0-7); HEMATOCRIT 39.2 % (36.0-48.0); HEMOGLOBIN 12.5 g/dL (12-16); IMMATURE GRANULOCYTES 0.4 % (0-5); LYMPHOCYTES 33.1 % (15-50); MCH 30.6 pg (26.0-34.0); MCHC 31.9 g/dL (31.0-37.0); MCV 96.1 fL (80.0-100.0); MONOCYTES 6.7 % (2-11); NEUTROPHILS 58.7 % (40-80); PLATELET COUNT 186 10x3/uL (130-400); RBC 4.08 10x6/uL (4.00-5.40); RDW 14.7 % (11.5-14.5); WBC 12.3 10x3/uL (4.8-10.8)
[2018-12-05 06:11] VITALS: BP 120/80
[2018-12-05 06:21] LABS: ANION GAP 13.2 mmol/L (8-16); CALCIUM 8.8 mg/dL (8.5-10.1); CARBON DIOXIDE 27.5 mmol/L (21.0-32.0); CREATININE - SERUM 0.9 mg/dL (0.6-1.3); POTASSIUM - SERUM 3.7 mmol/L (3.5-5.1)
--- NOTE | 2018-12-05 07:30 | NUR ---
PT UP OUT OF BED STATED SHE IS BORED, GOT WC AND HAD PT SIT WITH ME AT NURSES STATION, PT SAT FOR 10 MINUTES THEN GOT BORED AND WENT BACK TO BED, STATED SHE IS READY TO GO HOME. CL IN REACH, ADMINISTERED MEDS PER MAR CONTINUE WITH PLAN OF CARE
[2018-12-05 09:51] VITALS: BP 104/58
--- NOTE | 2018-12-05 12:12 | NUR ---
NUTRITION F/U REG DIET RESUMED. NURSING REPORTS PT DRINKING JUICES BUT INTAKE MEALS IS POOR. PT MAY BENEFIT FROM APPETITE STIMULANT. WILL ADD ENSURE TO MEALS. RD FOLLOWING
[2018-12-05] MEDS ORDERED: MEDROL DOSE PACK4 MG PO (12:35)
--- NOTE | 2018-12-05 13:29 | MORECARE ---
CASE MANAGEMENT DISCHARGE SUMMARY PATIENT: CELI SHIPMAN UNIT: [id number] ADM DATE: 11/25/18 AGE: 63 : 51 SEX: F ROOM/BED: D.2218 AUTHOR: LYSSA,DOC PHYSICIAN: REFERRING PHYSICIAN: JENNIFER FRIEND MD DATE OF SERVICE: 12/05/18 Discharge Plan Patient Name: CELI SHIPMAN Facility: [facility]:[place] : 1955 Planned Disposition: Home Anticipated Discharge Date: Discharge Date: Expected LOS: Initial Reviewer: [email or web address] Initial Review Date: 11/25/2018 Generated: 12/05/18 2:29 pm Comments DCP- Discharge Planning Updated by [email or web address]: Melisa Alan on 12/05/18 12:[address] Patient discharging home today. She is adamant on going home. She does not want inpatient rehab or any rehab, but is agreeable to home health with OT,PT, NURSING,SPEECH. WARD with [facility] . I called and spoke with Linnette. IMM served and explained. Her mom will be the one to drive her home. CM will continue to follow and assist with DC planning. House calls will also follow her DCP- Discharge Planning Updated by [email or web address]: Yenni Sanchez on 12/01/18 4:[address] LATE ENTRY 1245 CM RECEIVED A CONSULT REGARDING APPROPRIATENESS FOR KIM PSYCH. SHE IS DAY 1 POST SUNI HOLES. NS SURGERY FOLLOWUP ?? SHE HAS BEEN ON DECADRON 8 MGM IV Q6H SINCE 11/25. SHE REMAINS ON LASIX 40 MGM Q12H. HER BLOOD GLUCOSE LEVELS ARE ELEVATED. NO PHYSICAL THERAPY YET. QUESTION OT EVAL. PSYCH CONSULT CAN BE ORDERED FOR RECOMMENDATIONS. DOES NOT APPEAR SHE WOULD BE CONSIDERED MEDICALLY STABLE FOR THAT SITE OF CARE. CM TO FOLLOW FOR DISCHARGE PLANNING. DCP- Discharge Planning Updated by [email or web address]: Melisa Alan on 11/27/18 1:[address] Patient Name: CELI SHIPMAN Admission Status: ER Accout number: [id number] Admission Date: 11-25-2018 : 1955 Admission Diagnosis: Attending: JENNIFER FRIEND Current LOS: 2 Anticipated DC Date: Planned Disposition: Home Primary Insurance: MEDICARE A & B Discharge Planning Comments: CM met with patient to complete initial dc planning assessment. CM educated patient on the CM role and verbal consent given by patient to complete assessment. Patient lives at home with her mother and sister. At discharge patient plans to return there and feels this is a safe discharge. CM discussed availability of home health, rehab services, and medical equipment. Patient denied known discharge needs at this time. She states that either her mom or sister will drive her home. She is alert and oriented to place and time. She stated the president was Rickie & her family doctor was Mr Damian. She did know her birthday & moms cell phone number. At this time she states she does not need anything. CM will continue to follow and will assist as needed with dc plans/needs. Defense Attorney: Melisa Alan DCPIA - Discharge Planning Initial Assessment Updated by [id number]: Melisa Alan on 11/27/18 2:55 pm * Is the patient Alert and Oriented? Yes * How many steps to enter\exit or inside your home? * PCP PATIENT STATES [facility] * Pharmacy DON'T KNOW * Preadmission Environment Home with Family * ADLs Independent * Equipment None * List name and contact numbers for known caregivers / representatives who currently or will assist patient after discharge: EVERARDO IBARRA (MOM) [phone] * Verbal permission to speak to the caregivers and representatives has been obtained from the patient. N/A * Community resources currently utilized None * Can the patient safely return to the preadmission environment? Yes * Has this patient been hospitalized within the prior 30 days at any hospital? No External Providers External Provider: [facility] Next Contact Date: Service Request Date: Service Type: Resolution: Reviewer: Comments: Last DP export: 12/01/18 4:56 pm Patient Name: CELI SHIPMAN Page [phone] at 1329 All edits/amendments must be made on the electronic document DICTATION DATE: 12/05/18 1329 SEWER BUILDER: JOJO 12/05/18 1329 RPT#: [id number] DC DATE: STATUS: ADM IN [facility] [address] [place] [address] END OF REPORT
--- NOTE | 2018-12-05 14:18 | MORECARE ---
CASE MANAGEMENT DISCHARGE SUMMARY PATIENT: CELI SHIPMAN UNIT: [id number] ADM DATE: 11/25/18 AGE: 63 : 51 SEX: F ROOM/BED: D.2218 AUTHOR: LYSSA,DOC PHYSICIAN: REFERRING PHYSICIAN: JENNIFER FRIEND MD DATE OF SERVICE: 12/05/18 Discharge Plan Patient Name: CELI SHIPMAN Facility: [facility]:[place] : 1955 Planned Disposition: Home Anticipated Discharge Date: Discharge Date: Expected LOS: Initial Reviewer: [email or web address] Initial Review Date: 11/25/2018 Generated: 12/05/18 3:18 pm Comments DCP- Discharge Planning Updated by [id number]: Melisa Alan on 12/05/18 12:[address] Patient discharging home today. She is adamant on going home. She does not want inpatient rehab or any rehab, but is agreeable to home health with OT,PT, NURSING,SPEECH. WARD with [facility] . I called and spoke with Linnette. IMM served and explained. Her mom will be the one to drive her home. CM will continue to follow and assist with DC planning. House calls will also follow her DCP- Discharge Planning Updated by [id number]: Yenni Sanchez on 12/01/18 4:[address] LATE ENTRY 1245 CM RECEIVED A CONSULT REGARDING APPROPRIATENESS FOR KIM PSYCH. SHE IS DAY 1 POST SUNI HOLES. NS SURGERY FOLLOWUP ?? SHE HAS BEEN ON DECADRON 8 MGM IV Q6H SINCE 11/25. SHE REMAINS ON LASIX 40 MGM Q12H. HER BLOOD GLUCOSE LEVELS ARE ELEVATED. NO PHYSICAL THERAPY YET. QUESTION OT EVAL. PSYCH CONSULT CAN BE ORDERED FOR RECOMMENDATIONS. DOES NOT APPEAR SHE WOULD BE CONSIDERED MEDICALLY STABLE FOR THAT SITE OF CARE. CM TO FOLLOW FOR DISCHARGE PLANNING. DCP- Discharge Planning Updated by [email or web address]: Melisa Alan on 11/27/18 1:[address] Patient Name: CELI SHIPMAN Admission Status: ER Accout number: [id number] Admission Date: 11-25-2018 : 1955 Admission Diagnosis: Attending: JENNIFER FRIEND Current LOS: 2 Anticipated DC Date: Planned Disposition: Home Primary Insurance: MEDICARE A & B Discharge Planning Comments: CM met with patient to complete initial dc planning assessment. CM educated patient on the CM role and verbal consent given by patient to complete assessment. Patient lives at home with her mother and sister. At discharge patient plans to return there and feels this is a safe discharge. CM discussed availability of home health, rehab services, and medical equipment. Patient denied known discharge needs at this time. She states that either her mom or sister will drive her home. She is alert and oriented to place and time. She stated the president was Rickie & her family doctor was Mr Damian. She did know her birthday & moms cell phone number. At this time she states she does not need anything. CM will continue to follow and will assist as needed with dc plans/needs. Vacuum Drum Drier Operator: Melisa Alan DCPIA - Discharge Planning Initial Assessment Updated by [email or web address]: Melisa Alan on 11/27/18 2:55 pm * Is the patient Alert and Oriented? Yes * How many steps to enter\exit or inside your home? * PCP PATIENT STATES [facility] * Pharmacy DON'T KNOW * Preadmission Environment Home with Family * ADLs Independent * Equipment None * List name and contact numbers for known caregivers / representatives who currently or will assist patient after discharge: EVERARDO IBARRA (MOM) [phone] * Verbal permission to speak to the caregivers and representatives has been obtained from the patient. N/A * Community resources currently utilized None * Can the patient safely return to the preadmission environment? Yes * Has this patient been hospitalized within the prior 30 days at any hospital? No Coverage Notice Reviewer: [id number] - Melsia Alan Notice Issued Date-Time: 12/05/2018 13:10 Notice Type: IM Discharge Notice Notice Delivered To: Patient Relationship to Patient: Bottom Presser Name: Delivery Method: HAND - Hand Delivered Nikole Days: Prior Verbal Notification: Recipient Understood Notice: Yes Recipient Signature: Yes Med Rec Note Co-signed by Attending: Coverage Notice Comment: Last DP export: 12/05/18 12:29 pm Patient Name: CELI SHIPMAN Page [id number] at 1418 All edits/amendments must be made on the electronic document DICTATION DATE: 12/05/181417 SENIOR INFORMATION SECURITY ARCHITECT: JOJO 12/05/18 141 RPT#: [id number] DC DATE: STATUS: ADM IN [facility] [address] [place] [address] END OF REPORT
--- NOTE | 2018-12-05 15:53 | NUR ---
OT NOTE: PT COMPLETED BED MOB AND EOB SITTING WITH MOD I. THANK YOU, GEO DIAZ
== END 2018-12-05 15:13 | disposition home health service (06) | DRG 25 ==
LOC: D.ER 18:40 → D.MS 19:58 → D.EDHOLD 19:58 → D.ICU 20:29 → D.MS 11-26 17:37
PROVIDERS: Family Medicine; ADMIT Internal Medicine Nephrology; ATTEND Internal Medicine Nephrology
PROC: 00C70ZZ Extirpation of Matter from Cerebral Hemisphere, Open Approach (ICD-10-PCS; principal; 2018-12-03)
DX: S06.5X9A Traumatic subdural hemorrhage with loss of consciousness of unspecified duration, initial encounter (principal); G92 Toxic encephalopathy; R47.01 Aphasia; N39.0 Urinary tract infection, site not specified; I10 Essential (primary) hypertension; I25.10 Atherosclerotic heart disease of native coronary artery without angina pectoris; E11.9 Type 2 diabetes mellitus without complications; G72.89 Other specified myopathies

== ENCOUNTER 2018-12-10 22:50 | Inpatient (IN) | payer MEDICARE ==
[~2018-12-10] VITALS: Ht 167.6 cm; Wt 71.5 kg
[~2018-12-10 22:50] MED LIST changes: +MEDROL DOSE PACK4 MG PO
[2018-12-10 23:30] VITALS: BP 102/54
[2018-12-10 23:38] LABS: UDS - AMPHET NEGATIVE QUAL (NEGATIVE); UDS - BARB NEGATIVE QUAL (NEGATIVE); UDS - BENZO NEGATIVE QUAL (NEGATIVE); UDS - COCAINE NEGATIVE QUAL (NEGATIVE); UDS - OPIATE NEGATIVE QUAL (NEGATIVE); UDS - PCP NEGATIVE QUAL (NEGATIVE); UDS - THC NEGATIVE QUAL (NEGATIVE)
[2018-12-10 23:43] LABS: MCH 31.3 pg (26.0-34.0); MCHC 32.4 g/dL (31.0-37.0); MCV 96.4 fL (80.0-100.0); MEAN PLATELET VOLUME 12.4 fL (7.4-10.4); PLATELET COUNT 196 10x3/uL (130-400); RBC 3.84 10x6/uL (4.00-5.40); RDW 14.9 % (11.5-14.5); WBC 28.5 10x3/uL (4.8-10.8)
[2018-12-10 23:54] LABS: APPEARANCE CLOUDY (CLEAR); BILIRUBIN NEGATIVE (NEGATIVE); COLOR YELLOW (YELLOW); GLUCOSE 1000 mg/dL (NEGATIVE); KETONE MODERATE mg/dL (NEGATIVE); NITRITE NEGATIVE (NEGATIVE); PROTEIN 2+ mg/dL (NEGATIVE); UROBILINOGEN NORMAL (NORMAL)
[2018-12-10 23:56] LABS: AMORPHOUS SEDIMENT >1+ /lpf (NONE SEEN); BACTERIA MODERATE /hpf (NONE SEEN); EPITHELIAL CELLS 0-5 /hpf (0-5); RED CELLS - URINE 0-5 /hpf (0-5); WHITE CELLS - URINE 0-5 /hpf (0-5)
[2018-12-10 23:57] LABS: ALBUMIN 2.4 g/dL (3.4-5.0); ALKALINE PHOSPHATASE 229 U/L (46-116); ALT (SGPT) 206 U/L (10-68); BILIRUBIN - TOTAL 1.85 mg/dL (0.2-1.3); CALCIUM 7.5 mg/dL (8.5-10.1); CARBON DIOXIDE 10.1 mmol/L (21.0-32.0); CHLORIDE - SERUM 87 mmol/L (98-107); PHOSPHOROUS 5.3 mg/dL (2.5-4.9); PROTEIN - SERUM 6.4 g/dL (6.4-8.2); SODIUM 127 mmol/L (136-145); UREA NITROGEN 26 mg/dL (7-18); eGFR NON AFRICAN AMERICAN 26 mL/min (90-120)
[2018-12-11] VITALS (68 sets, daily range): BP systolic 23–168; BP diastolic 19–94; Ht 167.6 cm; Wt 71.5 kg
[2018-12-11 00:03] LABS: CALC OSMOLALITY 280 mosm/kg (275-300)
[2018-12-11 00:04] LABS: GLUCOSE 483 mg/dL (74-106); MAGNESIUM - SERUM 3.6 mg/dL (1.8-2.4); POTASSIUM - SERUM 2.6 mmol/L (3.5-5.1)
--- NOTE | 2018-12-11 00:10 | NUR ---
PT ASSISTED ONTO BEDPAN.
[2018-12-11 00:18] LABS: KETONE - SERUM LARGE mg/dL (NEGATIVE); LYMPHOCYTES 5 % (15-50); MONOCYTES 2 % (2-11); NEUTROPHILS 91 % (40-80); PLATELET ESTIMATE DECREASED
--- NOTE | 2018-12-11 00:45 | NUR ---
FSBS 443, EDP NOTIFIED. IV INSULIN INFUSION STARTED AT 5ML/HR
--- NOTE | 2018-12-11 01:04 | NUR ---
PT PROVIDED WATER PER REQUEST.
--- NOTE | 2018-12-11 01:49 | NUR ---
FSBS 347
--- NOTE | 2018-12-11 02:00 | NUR ---
REPORT CALLED TO KATHERYN DURAN IN ICU AT THIS TIME. UPON REVIEWING PT HX EDP CHOSE TO REMOVE PT ALEJANDRO FROM HEAD AND ORDER CT HEAD PRIOR TO TRANSPORT TO ICU.
--- NOTE | 2018-12-11 02:07 | NUR ---
6 ALEJANDRO REMOVED FROM PT HEAD. PT TOLERATED WELL.
--- NOTE | 2018-12-11 02:40 | NUR ---
RECEIVED PT FROM THE ER TO ROOM 2301. PT IS ATTACHED TO MONITORS AND ALL ARE WORKING CORRECTLY. INITIAL ASSESSMENT COMPLETED, SEE FLOWSHEET FOR DETAILS. PT TEMP WAS 93.6 RECTAL, MARIA GUADALUPE HUGGER APPLIED TO PT. NO SIGNS OF ACUTE DISTRESS. WILL CONTINUE TO MONITOR.
--- NOTE | 2018-12-11 02:42 | NUR ---
PT TRANSPORTED TO ICU FROM CT AT THIS TIME.
--- NOTE | 2018-12-11 05:03 | NUR ---
PT IS COMPLAINING OF PAIN. GAVE PT PRN MEDICATIONS AVAILABLE ON EMAR. PT IS BECOMING RESTLESS AND AGITATED. PT IS REPEATING THE SAME QUESTIONS OVER AND OVER AGAIN. PT IS DISORIENTED AND REQUIRES REPEATED REORIENTATION WITH LIMITED SUCCESS. PT IS COMPLAINING OF BEING HOT AT THIS TIME, MARIA GUADALUPE RYANER REMOVED. NO OTHER CHANGES NOTED. WILL CONTINUE TO MONITOR.
--- NOTE | 2018-12-11 05:45 | NUR ---
PT IS SAYING THAT SHE NEEDS TO USE THE BEDPAN. PLACED PT ON BEDPAN. PT TURNED ONTO SIDE AND REMOVED BEDPAN FROM SELF. PT IS AWAKE AND ALERT AND TALKING TO STAFF AT THIS TIME. WILL CONTINUE TO MONITOR.
--- NOTE | 2018-12-11 06:02 | NUR ---
PT'S MONITOR STARTED ALARMING, UPON ENTERING PT'S ROOM PT'S HR ON MONITOR SHOWED 30 BPM AND WAS DROPPING. PT DID NOT APPEAR TO BE BREATHING AND WOULD NOT RESPOND TO STIMULATION. VIRIDIANA GALVEZ WAS CALLED, SEE CODE BLUE SHEET FOR DETAILS.
[2018-12-11 06:30] LABS: CARBON DIOXIDE 10.5 mmol/L (21.0-32.0); CREATININE - SERUM 2.2 mg/dL (0.6-1.3)
[2018-12-11 06:32] LABS: ANION GAP 30.3 mmol/L (8-16); CALCIUM 6.9 mg/dL (8.5-10.1); POTASSIUM - SERUM 2.8 mmol/L (3.5-5.1)
--- NOTE | 2018-12-11 07:00 | NUR ---
REPORT RECEIVED. ASSESSSMENT COMPLETE PER FLOW SHEET. VSS REFER FOR FINDINGS. WILL CONTNIUE TO MONITOR
--- NOTE | 2018-12-11 07:40 | NUR ---
KAYLA AT BEDSIDE L AC PIV ADM
[2018-12-11 07:44] LABS: CKMB 5.4 U/L (0.0-3.6); CREATINE KINASE 533 UL (21-215); PRO BNP 3581 pg/mL (0-125)
[2018-12-11 07:52] LABS: TROPONIN-I 0.165 ng/mL (0.000-0.060)
--- NOTE | 2018-12-11 08:00 | NUR ---
CHRIS VERGARA PAGED. GIVEN UDPATE. STATED WAS ON THE WAY
--- NOTE | 2018-12-11 08:15 | NUR ---
NURSE AT BEDSIDE. HR NOTED DECREASE FROM 74 TO 55. TANYA RN CALLED TO ROOM AT THIS TIME. ATROPINE ON HAND. 0820 ATROPINE ADM HR 35 PEA NO PULSE NOTED ACLS/CPR STARTED AT THIS TIME. REFER TO CODE BLUE SHEET FOR COMPLETE ADMINISTRATIONS. DR FRIEND AT BEDSIDE AT THIS TIME. NEW ORDERS NOTED.
--- NOTE | 2018-12-11 08:48 | NUR ---
MOTHER EVERARDO CALLED GIVEN UPDATE. STATED WAS ON HER WAY AT THIS TIME.
[2018-12-11 09:17] LABS: ANION GAP 30.2 mmol/L (8-16); CARBON DIOXIDE 14.5 mmol/L (21.0-32.0); CREATININE - SERUM 2.1 mg/dL (0.6-1.3); POTASSIUM - SERUM 3.7 mmol/L (3.5-5.1)
[2018-12-11 09:18] LABS: CALCIUM 6.6 mg/dL (8.5-10.1); MAGNESIUM - SERUM 3.5 mg/dL (1.8-2.4)
--- NOTE | 2018-12-11 09:39 | NUR ---
CHRIS VERGARA AT BEDSIDE GIVEN UDPATE.
--- NOTE | 2018-12-11 09:45 | NUR ---
DR CANTU AT BEDSIDE.
--- NOTE | 2018-12-11 10:30 | NUR ---
DR CANTU PLACED R GROIN A LINE AT THIS TIME.
--- NOTE | 2018-12-11 11:00 | NUR ---
REASSESSMENT COMPLETE PER FLOW SHEET. VSS. NO NEW CHANGES WILL CONTINUE TO MONITOR
--- NOTE | 2018-12-11 12:28 | NUR ---
MOTHER AT BEDSIDE POA, DR KAPADIA SPOKE WITH FAMILY AT GREAT LENGTH ALL QUESTIONS ANSWERED MOTHER EVERARDO MADE PT MED CODE ONLY AT THIS TIME.
[2018-12-11 13:14] LABS: CREATININE - SERUM 2.3 mg/dL (0.6-1.3); POTASSIUM - SERUM 3.7 mmol/L (3.5-5.1)
[2018-12-11 13:15] LABS: ANION GAP 40.8 mmol/L (8-16)
--- NOTE | 2018-12-11 13:15 | NUR ---
MOTHER DESIREE AT
[2018-12-11 13:16] LABS: CALCIUM 6.4 mg/dL (8.5-10.1); CARBON DIOXIDE 9.9 mmol/L (21.0-32.0); MAGNESIUM - SERUM 3.5 mg/dL (1.8-2.4)
--- NOTE | 2018-12-11 14:13 | NUR ---
GABRIEL SON GIVEN UPDATE SPOKE TO AT GREAT LENGTH. STATED UNDERSTANDING. NO NEW CHANGES WILL CONTINUE TO MONITOR
--- NOTE | 2018-12-11 14:20 | NUR ---
DR KAPADIA PAGEWilliam GIVEN UPDATE REGAURDING ELEVATED D DIMER T ORDER RECEIVED. WILL ADM
[2018-12-11 14:57] LABS: CKMB 18.3 U/L (0.0-3.6)
--- NOTE | 2018-12-11 15:16 | NUR ---
REASSESSMENT COMPLETE PER FLOW SHEET. VSS. NO NEW CHANGES WILL CONTINUE TO MONTIOR
--- NOTE | 2018-12-11 15:19 | NUR ---
REASSESSMENT COMPLETE PER FLOW SHEET. VSS. NO NEW CHANGES WILL CONTINUE TO MONITOR
[2018-12-11 15:24] LABS: CREATINE KINASE 1304 UL (21-215)
[2018-12-11 15:25] LABS: TROPONIN-I 0.731 ng/mL (0.000-0.060)
--- NOTE | 2018-12-11 16:10 | NUR ---
DR FRIEND CALLED GIVEN UPDATE REGAURDING PT STATUS, MAXIUM RATES ON JOLLY AND DOPAMINE AT THIS TIME. STATED OKAY. NO NEW ORDERS AT THIS TIME.
[2018-12-11 16:30] LABS: CREATININE - SERUM 2.5 mg/dL (0.6-1.3); MAGNESIUM - SERUM 3.4 mg/dL (1.8-2.4); POTASSIUM - SERUM 3.4 mmol/L (3.5-5.1)
--- NOTE | 2018-12-11 16:33 | NUR ---
MOTHER EVERARDO SADLER GIVEN UDPATE REGAURDING PTS STATUS STATED UNDERSTANDING AND WAS ON HER WAY.
[2018-12-11 16:35] LABS: ANION GAP 42.5 mmol/L (8-16)
[2018-12-11 16:37] LABS: CARBON DIOXIDE 9.9 mmol/L (21.0-32.0)
[2018-12-11 16:38] LABS: CALCIUM 5.6 mg/dL (8.5-10.1)
--- NOTE | 2018-12-11 17:59 | MORECARE ---
CASE MANAGEMENT DISCHARGE SUMMARY PATIENT: CELI SHIPMAN UNIT: [id number] ADM DATE: 12/11/18 AGE: 63 : 51 SEX: F ROOM/BED: D.2301 AUTHOR: CYNDIE OMALLEY PHYSICIAN: REFERRING PHYSICIAN: JENNIFER FRIEND MD DATE OF SERVICE: 12/11/18 Discharge Plan Patient Name: CELI SHIPMAN [facility] : 1955 Planned Disposition: Anticipated Discharge Date: Discharge Date: Expected LOS: Initial Reviewer: [email or web address] Initial Review Date: 12/11/2018 Generated: 12/11/18 6:58 pm Comments DCP- Discharge Planning Updated by [email or web address]: Li Santana on 12/11/18 4:[address] Patient coded x2 today and is currently on ventilator. No family available at this time. CM will continue to follow and assist as needed with discharge planning needs. Patient Name: CELI SHIPMAN Page [phone] at 1759 All edits/amendments must be made on the electronic document DICTATION DATE: 12/11/181757 AUTOMATIC PRESSER: JOJO 12/11/181757 RPT#: [id number] DC DATE: STATUS: ADM IN [facility] [address] [place] [address] END OF REPORT
--- NOTE | 2018-12-11 19:01 | NUR ---
REPORT RECEIVED, CARE ASSUMED. PT IS IN BED INTUBATED ON THE VENT. INITIAL ASSESSMENT COMPLETED, SEE FLOWSHEET FOR DETAILS. NO NEEDS NOTED AT THIS TIME. CLOSELY MONITORING FOR CHANGES.
[2018-12-11 20:26] LABS: CKMB 26.2 U/L (0.0-3.6); CREATINE KINASE 2035 UL (21-215); TROPONIN-I 1.772 ng/mL (0.000-0.060)
--- NOTE | 2018-12-11 21:01 | NUR ---
PT'S HR IS STARTING TO TREND DOWN INTO THE LOW 50'S. MONITORING VERY CLOSELY AT THIS TIME.
--- NOTE | 2018-12-11 22:15 | NUR ---
PT WENT INTO SEVERE BRADYCARDIA, INFORMED ER DOCTOR OF THE FACT THAT WE HAVE A MED CODE ONLY AND THAT HER HR WAS CURRENTLY 30. ORDERED TO PUSH 1 OF ATROPINE. WILL CONTINUE TO MONITOR CLOSELY.
--- NOTE | 2018-12-11 22:52 | NUR ---
PT WENT ASYSTOLE ON THE MONITOR, CODE CALLED. SEE CODE BLUE SHEET FOR FURTHER DETAILS.
--- NOTE | 2018-12-11 23:06 | NUR ---
DR LAU PRONOUCED PT AT THIS TIME. FAMILY NOTIFIED. PRN PHYSICAL THERAPIST NOTIFIED. BOYCE NOTIFIED. DONATION OPTION BEING PRESENTED TO FAMILY.
--- NOTE | 2018-12-12 01:30 | NUR ---
HOME PRIMER POWDER BLENDER WET PRESENT TO TRANSPORT BODY.
--- NOTE | 2018-12-12 10:57 | MORECARE ---
CASE MANAGEMENT DISCHARGE SUMMARY PATIENT: CELI SHIPMAN UNIT: [id number] ADM DATE: 12/11/18 AGE: 63 : 51 SEX: F ROOM/BED: D.2301 AUTHOR: CYNDIE OMALLEY PHYSICIAN: REFERRING PHYSICIAN: JENNIFER FRIEND MD DATE OF SERVICE: 12/12/18 Discharge Plan Patient Name: CELI SHIPMAN Facility: [facility]:[place] : 1955 Planned Disposition: Anticipated Discharge Date: Discharge Date: 12/11/2018 Expected LOS: Initial Reviewer: [email or web address] Initial Review Date: 12/11/2018 Generated: 12/12/18 11:56 am DCP- Discharge Planning Updated by [email or web address]: Li Santana on 12/11/18 4:[address] Patient coded x2 today and is currently on ventilator. No family available at this time. CM will continue to follow and assist as needed with discharge planning needs. Last DP export: 12/11/18 4:59 p Patient Name: CELI SHIPMAN Page [id number] at 1057 All edits/amendments must be made on the electronic document DICTATION DATE: 12/12/18 1056 SILK PRESSER: JOJO 12/12/18 1056 RPT#: [id number] DC DATE:12/11/18 STATUS: DIS IN [facility] [address] [place] [address] END OF REPORT
--- NOTE | 2018-12-14 14:57 | EC ---
PATIENT:CELI SHIPMAN DATE OF SERVICE: 12/11/18 SEX: F MEDICAL RECORD: [id number] DATE OF : [birth year] LOCATION:[facility] [address] AGE OF PATIENT: 63 ADMISSION DATE: 12/11/18 REFERRING PHYSICIAN: INTERPRETING PHYSICIAN: SANDIE GRAY MD ECHOCARDIOGRAM REPORT ECHO CHARGES 5 ECHO LIMITED Date: 12/11/18 CLINICAL DIAGNOSIS: CHF ECHOCARDIOGRAPHIC MEASUREMENTS (adult normal given) AC root (d.<3.7cm) 0 cm LV Septum d (<1.2 cm> 0 cm Valve Excursion 0 cm LV Septum (systole) 0 cm Left Atria (s.<4.0cm> 0 cm LVPW d(<1.2cm) 0 cm RV (d.<2.3cm) 0 cm LVPW (sytole) 0 cm LV diastole(<5.6CM) 0 cm MV E-F(>70mm/sec) 0 cm LV systole 0 cm LVOT Diameter 0 cm MV exc.(>10mm) 0 cm Est.ejection fraction (50-75%) 0 % DOPPLER: LVIT cm/sec A 0 cm/sec E 0 cm/sec LA 0 cm/sec RVSP 17.4 mmHg LVOT 0 cm/sec AOP1/2T m/s Asc. Ao 0 cm/sec RVOT 0 cm/sec RA 0 cm/sec PA 0 cm/sec AV Gradient Peak 0 mmHg AV Mean 0 mmHg AV Area 0 cm MV Gradient Peak 0 mmHg MV Mean 0 mmHg MV Area 0 cm COMMENTS: Earth Science Technical Officer: Jhonatan GREEN Business Banker: Tee Gray TAPE# PACS Pericardial Effusion N DATE OF SERVICE: 12/11/2018 PROCEDURE: Echocardiogram. FINDINGS: 1. Left ventricular chamber size is within normal limits. Left ventricular systolic function is mildly reduced, overall ejection fraction 45% to 50%. 2. Left atrium, right atrium, and right ventricle chamber sizes are within normal limits. 3. Valvular structures have normal structure and motion. ECHOCARDIOGRAM REPORT [id number] CELI SHIPMAN 4. Doppler interrogation reveals trace tricuspid regurgitation only. No other valvular insufficiency or stenosis. Pulmonary systolic pressure is normal estimated at 17 mmHg. 5. No evidence of pericardial effusion or left ventricular thrombus. TRANSINT:[id number] Voice Confirmation ID: [id number] DOCUMENT ID: [id number] SANDIE GRAY MD at 1457 CC: [id number] DICTATION DATE: 12/11/18 1257 SINGER BACK TENDER: 12/11/18 1350 DIS IN 12/11/18 [place] [place] [address]
== END 2018-12-11 23:06 | DRG 637 ==
LOC: D.ER 22:50 → D.EDHOLD 12-11 00:13 → D.ICU 12-11 00:13 → D.CVICU 12-11 00:41 → D.ICU 12-11 01:52
PROVIDERS: Emergency Medicine; ADMIT Internal Medicine Nephrology; ATTEND Internal Medicine Nephrology
PROC: 05H633Z Insertion of Infusion Device into Left Subclavian Vein, Percutaneous Approach (ICD-10-PCS; principal; 2018-12-11)
PROC: 04HY32Z Insertion of Monitoring Device into Lower Artery, Percutaneous Approach (ICD-10-PCS; 2018-12-11)
PROC: 5A1935Z Respiratory Ventilation, Less than 24 Consecutive Hours (ICD-10-PCS; 2018-12-11)
PROC: 0BH17EZ Insertion of Endotracheal Airway into Trachea, Via Natural or Artificial Opening (ICD-10-PCS; 2018-12-11)
DX: E11.10 Type 2 diabetes mellitus with ketoacidosis without coma (principal); S06.5X9A Traumatic subdural hemorrhage with loss of consciousness of unspecified duration, initial encounter; N17.0 Acute kidney failure with tubular necrosis; J96.01 Acute respiratory failure with hypoxia; J96.02 Acute respiratory failure with hypercapnia; E87.1 Hypo-osmolality and hyponatremia; E87.2 Acidosis; G93.40 Encephalopathy, unspecified; I10 Essential (primary) hypertension; F17.200 Nicotine dependence, unspecified, uncomplicated; I25.10 Atherosclerotic heart disease of native coronary artery without angina pectoris; E78.5 Hyperlipidemia, unspecified; E87.6 Hypokalemia; N28.9 Disorder of kidney and ureter, unspecified; E86.9 Volume depletion, unspecified; Z91.14 Patient's other noncompliance with medication regimen; W19.XXXA Unspecified fall, initial encounter; J44.9 Chronic obstructive pulmonary disease, unspecified; R57.0 Cardiogenic shock